=== PATIENT | male | born 1990 | race Caucasian/White ===

== ENCOUNTER 2017-07-13 15:02 | Emergency (ER) | payer OTHER ==
[~2017-07-13] VITALS: Ht 180.3 cm; Wt 93.6 kg
[2017-07-13 15:16] VITALS: TEMP 37.6; Ht 180.3 cm; Wt 93.6 kg
--- NOTE | 2017-07-13 15:47 | DIAGNOSTIC IMAGING REPORT ---
CHEST ONE VIEW PORTABLE CLINICAL HISTORY: Altered mental status. Weakness. COMPARISON STUDY: No previous studies for comparison. FINDINGS: The cardiac and mediastinal contours are normal. There is no evidence of focal pulmonary consolidation. There is no evidence of failure. No pleural effusions are visualized.[ IMPRESSION: No active disease in the chest. Electronically signed by: Harpal Blanco M.D. 07/13/2017 3:46 PM Dictated Date/Time: 07/13/2017 3:46 PM
[2017-07-13] MEDS ORDERED: ZIPR60CA PO (16:04)
[2017-07-13] MEDS ORDERED: CLON0.1T12 PO (16:04)
[2017-07-13] MEDS ORDERED: ZIPR1CAP4 PO (16:04)
[2017-07-13] MEDS ORDERED: BUPR75TA20 PO (16:04)
[2017-07-13] MEDS ORDERED: CLON0.2T PO (16:04)
[2017-07-13] MEDS ORDERED: DIPH50TA10 PO (16:06)
[2017-07-13 16:14] LABS: PROTHROMBIN TIME (PATIENT) 10.8 SECONDS (9.0-12.0)
--- NOTE | 2017-07-13 16:18 | DIAGNOSTIC IMAGING REPORT ---
CT HEAD WITHOUT CONTRAST (CT) CLINICAL HISTORY: Right-sided weakness, headache, blurred vision. COMPARISON STUDY: No previous studies for comparison. TECHNIQUE: Axial CT of the brain is performed from the vertex to the skull base. IV contrast was not administered for this examination. A dose lowering technique was utilized adhering to the principles of ALARA. CT DOSE: 679.75 mGycm FINDINGS: No intra or extra-axial mass lesions are visualized. There is no CT evidence of acute cortical infarction. There is no evidence of midline shift. There is no acute hemorrhage. No calvarial fractures are visualized. There is no evidence of pathologic ventricular dilatation. There is no evidence of acute sinusitis IMPRESSION: 1. No acute intracranial findings 2. There are no findings to explain the patient's neurological status. If symptoms persist, an MRI the brain should be considered in follow-up Electronically signed by: Harpal Blanco M.D. 07/13/2017 4:16 PM Dictated Date/Time: 07/13/2017 4:15 PM
[2017-07-13 16:25] LABS: ALT/SGPT 24 U/L (12-78); BLOOD UREA NITROGEN 9 mg/dl (7-18); BUN/CREATININE RATIO 9.3 (10-20); CALCIUM 9.3 mg/dl (8.5-10.1); CARBON DIOXIDE 26 mmol/L (21-32); CHLORIDE 108 mmol/L (98-107); GLUCOSE 95 mg/dl (70-99); MAGNESIUM 2.2 mg/dl (1.8-2.4); POTASSIUM 3.9 mmol/L (3.5-5.1); SODIUM 139 mmol/L (136-145)
[2017-07-13 16:26] LABS: BASO % 0.6 %; BASO ABS # 0.05 K/uL (0-0.2); COMPLETE YES; EOS % 2.4 %; HEMATOCRIT 43.2 % (42-52); IG% 0.1 %; LYMPH % 26.1 %; MEAN CELL VOLUME 93.3 fL (80-100); MEAN CORPUSCULAR HEMOGLOBIN 31.7 pg (25-34); NEUT % 61.8 %; PLATELET COUNT 274 K/uL (130-400); RED BLOOD COUNT 4.63 M/uL (4.7-6.1); WHITE BLOOD COUNT 8.04 K/uL (4.8-10.8)
[2017-07-13 16:34] LABS: ALKALINE PHOSPHATASE 51 U/L (45-117); AST/SGOT 16 U/L (15-37); THYROID STIMULATING HORMONE 0.507 uIu/ml (0.300-4.500)
[2017-07-13 18:02] VITALS: BP 108/69; PULSE 65; O2SAT 99
--- NOTE | 2017-07-13 18:33 | EMERGENCY ROOM VISIT NOTE ---
History Report prepared by Dominique: Jesús Grewal Under the Supervision of: Dr. Donaldo Medina D.O. First contact with patient: 15:22 Chief Complaint: WEAKNESS Stated Complaint: R SIDE WEAKNESS, HEADACHE, BLURRED VISION History of Present Illness The patient is a 26 year old male who presents to the Emergency Room with complaints of right sided body numbness for the past week which has worsened over the past two days. The patient states that it is worse in the right arm, leg, and face. He additionally states that he is nauseous, and he has been having difficulty balancing while walking. He states that he has also been having some right sided weakness in both extremities. He states that he has a history of hepatitis B. Source of History: patient Onset: a week ago Position: other (right side) Quality: numbness Timing: worsening Associated Symptoms: + nausea, + weakness Note: Associated symptoms: Difficulty balancing Review of Systems See HPI for pertinent positives & negatives. A total of 10 systems reviewed and were otherwise negative. Past Medical & Surgical Medical Problems: (1) Hepatitis B Social History Smoking Status: Current Every Day Smoker Marital Status: single Housing Status: other (intermediate) Occupation Status: other (prisoner) Current/Historical Medications Scheduled Bupropion (Wellbutrin), 150 MG PO BID Clonidine Hcl (Catapres), 0.1 MG PO QAM Clonidine Hcl (Catapres), 0.2 MG PO HS Diphenhydramine Hcl (Sleep) (Diphenhydramine Hcl), 1 TAB PO HS Ziprasidone Hcl (Geodon), 40 MG PO BID Ziprasidone Hcl (Geodon), 60 MG PO BID Physical Exam Vital Signs Date Time Temp Pulse Resp B/P (MAP) Pulse Ox O2 Delivery O2 Flow Rate FiO2 07/13/17 17:15 71 20 104/65 99 Room Air 07/13/17 15:32 72 07/13/17 15:16 37.6 75 20 120/73 97 Room Air Physical Exam VITAL SIGNS: were reviewed as above. GENERAL:Non-toxic in appearance. SKIN: Warm dry and pink. HEAD: Normocephalic and atraumatic. OROPHARYNX: Is clear and moist NECK: Supple without lymphadenopathy or meningismus. LUNGS: clear. HEART: Regular rate and rhythm. ABDOMEN: Soft and nontender. EXTREMITIES: Warm and well perfused. NEUROLOGICALLY: Cranial nerves appear intact. Normal upper extremity strength. Right leg appears slightly weaker than the left. MUSCULOSKELETAL: Good muscle tone. No evidence of trauma. Medical Decision & Procedures ER Provider Diagnostic Interpretation: Radiology results as stated below per my review and radiologist interpretation: CT HEAD WITHOUT CONTRAST (CT) CLINICAL HISTORY: Right-sided weakness, headache, blurred vision. COMPARISON STUDY: No previous studies for comparison. TECHNIQUE: Axial CT of the brain is performed from the vertex to the skull base. IV contrast was not administered for this examination. A dose lowering technique was utilized adhering to the principles of ALARA. CT DOSE: 679.75 mGycm FINDINGS: No intra or extra-axial mass lesions are visualized. There is no CT evidence of acute cortical infarction. There is no evidence of midline shift. There is no acute hemorrhage. No calvarial fractures are visualized. There is no evidence of pathologic ventricular dilatation. There is no evidence of acute sinusitis IMPRESSION: 1. No acute intracranial findings 2. There are no findings to explain the patient's neurological status. If symptoms persist, an MRI the brain should be considered in follow-up Electronically signed by: Harpal Blanco M.D. 07/13/2017 4:16 PM Dictated Date/Time: 07/13/2017 4:15 PM CHEST ONE VIEW PORTABLE CLINICAL HISTORY: Altered mental status. Weakness. COMPARISON STUDY: No previous studies for comparison. FINDINGS: The cardiac and mediastinal contours are normal. There is no evidence of focal pulmonary consolidation. There is no evidence of failure. No pleural effusions are visualized.[ IMPRESSION: No active disease in the chest. Electronically signed by: Harpal Blanco M.D. 07/13/2017 3:46 PM Dictated Date/Time: 07/13/2017 3:46 PM Laboratory Results 07/13/17 15:55 Red Blood Count 4.63, Mean Corpuscular Volume 93.3, Mean Corpuscular Hemoglobin 31.7, Mean Corpuscular Hemoglobin Concent 34.0, Mean Platelet Volume 10.0, Neutrophils (%) (Auto) 61.8, Lymphocytes (%) (Auto) 26.1, Monocytes (%) (Auto) 9.0, Eosinophils (%) (Auto) 2.4, Basophils (%) (Auto) 0.6, Neutrophils # (Auto) 4.97, Lymphocytes # (Auto) 2.10, Monocytes # (Auto) 0.72, Eosinophils # (Auto) 0.19, Basophils # (Auto) 0.05 07/13/17 15:55 Test 07/13/17 15:55 White Blood Count 8.04 K/uL (4.8-10.8) Red Blood Count 4.63 M/uL (4.7-6.1) Hemoglobin 14.7 g/dL (14.0-18.0) Hematocrit 43.2 % (42-52) Mean Corpuscular Volume 93.3 fL (80-100) Mean Corpuscular Hemoglobin 31.7 pg (25-34) Mean Corpuscular Hemoglobin Concent 34.0 g/dl (32-36) Platelet Count 274 K/uL (130-400) Mean Platelet Volume 10.0 fL (7.4-10.4) Neutrophils (%) (Auto) 61.8 % Lymphocytes (%) (Auto) 26.1 % Monocytes (%) (Auto) 9.0 % Eosinophils (%) (Auto) 2.4 % Basophils (%) (Auto) 0.6 % Neutrophils # (Auto) 4.97 K/uL (1.4-6.5) Lymphocytes # (Auto) 2.10 K/uL (1.2-3.4) Monocytes # (Auto) 0.72 K/uL (0.11-0.59) Eosinophils # (Auto) 0.19 K/uL (0-0.5) Basophils # (Auto) 0.05 K/uL (0-0.2) RDW Standard Deviation 43.2 fL (36.4-46.3) RDW Coefficient of Variation 12.6 % (11.5-14.5) Immature Granulocyte % (Auto) 0.1 % Immature Granulocyte # (Auto) 0.01 K/uL (0.00-0.02) Prothrombin Time 10.8 SECONDS (9.0-12.0) Prothromb Time International Ratio 1.0 (0.9-1.1) Activated Partial Thromboplast Time 26.1 SECONDS (21.0-31.0) Partial Thromboplastin Ratio 1.0 Anion Gap 5.0 mmol/L (3-11) Est Creatinine Clear Calc Drug Dose 128.5 ml/min Estimated GFR () 118.2 Estimated GFR (Non- 102.0 BUN/Creatinine Ratio 9.3 (10-20) Calcium Level 9.3 mg/dl (8.5-10.1) Magnesium Level 2.2 mg/dl (1.8-2.4) Total Bilirubin 0.4 mg/dl (0.2-1) Direct Bilirubin 0.2 mg/dl (0-0.2) Aspartate Amino Transf (AST/SGOT) 16 U/L (15-37) Alanine Aminotransferase (ALT/SGPT) 24 U/L (12-78) Alkaline Phosphatase 51 U/L (45-117) Total Creatine Kinase 82 U/L (39-308) Creatine Kinase MB < 0.5 ng/ml (0.5-3.6) Creatine Kinase MB Ratio (0-3.0) Troponin I < 0.015 ng/ml (0-0.045) Total Protein 7.5 gm/dl (6.4-8.2) Albumin 4.0 gm/dl (3.4-5.0) Lipase 76 U/L (73-393) Thyroid Stimulating Hormone (TSH) 0.507 uIu/ml (0.300-4.500) Laboratory results as stated above per my review. ECG Indication: other (right sided numbness) Rate (beats per minute): 59 Rhythm: normal sinus Findings: no ectopy, other (No injury) ED Course 1537: Previous medical records were reviewed. The patient was evaluated in room A11. A complete history and physical examination was performed. 1751: On reevaluation, the patient is feeling well. I discussed the results and findings with the patient. He verbalized agreement of the treatment plan. He was discharged home. Medical Decision Differential includes acute coronary syndrome, myocardial infarction, CVA, TIA, anemia, infection, pneumonia, UTI, pyelonephritis, poor nutrition, dehydration, electrolyte disturbance,hypoglycemia. This is a 26-year-old male who presents to the ED with a chief complaint of right-sided weakness. The patient reports that the right side of his body is numb and feels as though to sleep. He also reports some weakness in his right leg and right arm. He states that he has had the symptoms for over a week. He reports a little nausea and states that his symptoms seemed to worsen over the last couple of days. His vital signs are normal. He is afebrile. He does not appear to be in any distress. His physical exam was unremarkable. Neurologically, the patient has no facial droop. He has no weakness of his right upper extremity. He does have some weakness in the right leg compared to the left on clinical exam. The patient's laboratory studies revealed normal blood work including a CBC, complete metabolic panel, troponin and TSH. Chest x -ray did not show acute disease. A CT scan of the brain was negative for acute disease. EKG shows a sinus rhythm at a rate of 59. No acute injury or ectopy. The patient was told the results of the test. At this point, there is no clear explanation for the patient's symptoms but emergent pathology has been ruled out. I feel the patient is stable for discharge back to the care home. Medication Reconcilliation Current Medication List: was personally reviewed by me Blood Pressure Screening Patient's blood pressure: Normal blood pressure Impression Primary Impression: Weakness of right side of body Scribe Attestation The scribe's documentation has been prepared under my direction and personally reviewed by me in its entirety. I confirm that the note above accurately reflects all work, treatment, procedures, and medical decision making performed by me. Departure Information Dispostion Home / Self-Care Referrals Lilia GOLDBERG (PCP) Forms HOME CARE DOCUMENTATION FORM, IMPORTANT VISIT INFORMATION Patient Instructions My [facility] Additional Instructions Follow-up with your doctor for further care and evaluation in 1-2 days. Return to the emergency department for worsening or new symptoms or any concerns. You have been examined and treated today on an emergency basis only. This is not a substitute for, or an effort to provide, complete comprehensive medical care. It is impossible to recognize and treat all injuries or illnesses in a single emergency department visit. It is therefore important that you follow up closely with your doctor. Call as soon as possible for an appointment.
[2017-07-20] MEDS ORDERED: METH4PAK PO (15:42)
[2017-07-20] MEDS ORDERED: METH1INJ13 IV (15:42)
== END 2017-07-13 18:03 | disposition home or self-care (01) ==
LOC: C.EDA 15:05
DX: R53.1 Weakness (principal); R20.0 Anesthesia of skin; R11.0 Nausea; Z79.899 Other long term (current) drug therapy; F17.200 Nicotine dependence, unspecified, uncomplicated

== ENCOUNTER 2017-07-19 12:30 | Inpatient (IN) | payer OTHER ==
[~2017-07-19] VITALS: Ht 180.3 cm; Wt 91.5 kg
[~2017-07-19 12:30] MED LIST: BUPR75TA20 PO; CLON0.1T12 PO; CLON0.2T PO; DIPH50TA10 PO; ZIPR1CAP4 PO; ZIPR60CA PO
--- NOTE | 2017-07-19 14:17 | EMERGENCY ROOM VISIT NOTE ---
History Report prepared by Dominique: Rafael Weinstein Under the Supervision of: Dr. Jerald Flanagan D.O. First contact with patient: 14:00 Chief Complaint: NEURO SYMPTOMS Stated Complaint: BLANACE OFF, EYES GOING CROSS Nursing Triage Summary: triage note; pt from [facility]. pt reports he was seen in ed for the same symptoms last week. pt reports "my right side is numb, i keep falling to the right and i am stumbling and i am seeing double, my blanace is off." pt reports "it is getting worse since i was here last week." History of Present Illness The patient is a 26 year old male who presents to the Emergency Room from [facility] with complaints of worsening episodes of neuro symptoms that started 2 weeks ago. He says that he has been having these episodes where his eyes get cross-eyed, and he feels off-balance and veering to the right. The patient states that he has also had nausea and vomiting with these episodes, and the right side of his body feels asleep. He denies any left-sided symptoms. The patient states that he was seen here a week ago for his symptoms, and had a brain CT, chest x-ray, and EKG done, which revealed nothing abnormal. The patient says that he has not been on any new medications. The patent states that his episode earlier today was "horrible". He denies any pain, fevers, or headache. Source of History: patient Onset: 2 weeks ago Position: other (global - neuro symptoms) Timing: worsening, other (episodes) Associated Symptoms: + nausea, + vomiting, + numbness (right side of body), No fevers, No headache Note: Associated symptoms: Eyes cross-eyed, feels off-balance. Denies left sided symptoms, or any pain. Review of Systems See HPI for pertinent positives & negatives. A total of 10 systems reviewed and were otherwise negative. Past Medical & Surgical Medical Problems: (1) Hepatitis B Family History Unobtainable Social History Smoking Status: Current Every Day Smoker Marital Status: single Housing Status: other Occupation Status: other Current/Historical Medications Scheduled Bupropion (Wellbutrin), 150 MG PO BID Clonidine Hcl (Catapres), 0.1 MG PO QAM Clonidine Hcl (Catapres), 0.2 MG PO HS Diphenhydramine Hcl (Sleep) (Diphenhydramine Hcl), 1 TAB PO HS Ziprasidone Hcl (Geodon), 40 MG PO BID Ziprasidone Hcl (Geodon), 60 MG PO BID Allergies Coded Allergies: No Known Allergies (Unverified , 07/19/17) Physical Exam Vital Signs Date Time Temp Pulse Resp B/P (MAP) Pulse Ox O2 Delivery O2 Flow Rate FiO2 07/19/17 15:30 86 22 98 07/19/17 15:00 85 22 98 07/19/17 14:35 88 20 118/74 100 Room Air 07/19/17 14:34 88 118/74 90 108/68 92 102/71 07/19/17 14:32 102/71 07/19/17 14:31 108/68 07/19/17 14:16 Room Air 07/19/17 14:00 84 23 97 07/19/17 13:30 87 21 97 07/19/17 13:29 96 Room Air 07/19/17 13:16 93 07/19/17 12:48 36.9 102 18 108/76 96 Room Air Physical Exam GENERAL: Patient is awake, alert, and in no acute distress. Patient is resting comfortably and showing no signs of anxiety EYES: Pupils are equal, round and reactive to light. Patient had difficulty looking laterally with the right eye and appears to have nystagmus when looking to the right, patient has disconjugate gaze and when looking to right, patient suffers diplopia. Left eye exam appeared normal with extraocular movement testing. EARS, NOSE, MOUTH AND THROAT: The nose is without any evidence of any deformity. Mucous membranes are moist tongue is midline NECK: The neck is nontender and supple. RESPIRATORY: Normal respiratory effort is noted there is no evidence of wheezing rhonchi or rales CARDIOVASCULAR: Regular rate and rhythm noted there no murmurs rubs or gallops normal S1 normal S2 GASTROINTESTINAL: The abdomen is soft. Bowel sounds are present in all quadrants. Abdomen is nontender MUSCULOSKELETAL/EXTREMITIES: There is no evidence of gross deformity full range of motion is noted in the hips and shoulders SKIN: There is no obvious evidence of any rash. There are no petechiae, pallor or cyanosis noted. NEUROLOGIC: Patient is awake alert and oriented x3 strength is symmetric patellar reflexes are 2+ bilaterally Medical Decision & Procedures ER Provider Diagnostic Interpretation: MRI results as stated below per my review and radiologist interpretation. MRI OF THE BRAIN COMBO CLINICAL HISTORY: Right-sided weakness. Diplopia. COMPARISON STUDY: CT of the brain dated 07/13/2017. TECHNIQUE: MRI of the brain was performed utilizing various T1 and T2-weighted sequences in the axial, sagittal, and coronal planes. Contrast-enhanced sequences were acquired following the administration of 9 cc of Gadavist. FINDINGS: Brain parenchyma: There are numerous T2 hyperintense lesions identified throughout the subcortical and periventricular white matter, as well as in the thalamus, nathan, and cerebellar peduncles. Several of these demonstrate postcontrast enhancement, and the largest is in the right frontal periventricular white matter and measures up to 1.5 cm. There is no significant associated mass effect. No hemorrhage is seen. There is no restricted diffusion typical for acute ischemia. Foci of T2 shine through are seen within several days lesions No enhancing mass lesion is identified on the postcontrast images. No extra-axial fluid collection is seen. The cerebellar tonsils are normal in configuration. Ventricles, sulci, and cisterns: Normal in configuration. Pituitary and sella: Unremarkable. Intracranial vasculature: Normal flow voids are maintained at the skull base. Orbits: The bony orbits are grossly intact. Orbital contents are normal in appearance. Sinuses and mastoids: Clear. Calvarium: Unremarkable. Cervical cord: Partially visualized cervical spinal cord is normal in morphology and signal intensity. IMPRESSION: 1. There are numerous T2 hyperintense lesion scattered throughout the brain as above. Several of these lesions demonstrate postcontrast enhancement an the appearance is highly concerning for a demyelinating process such as multiple sclerosis. The top differential consideration is PIT SHOVELER infection, with neoplasm considered much less likely. Clinical correlation will be essential. 2. There is no hemorrhage or evidence of acute ischemia. No significant mass effect is seen. Electronically signed by: Jonnathan Damian M.D. 07/19/2017 4:31 PM Dictated Date/Time: 07/19/2017 4:22 PM Laboratory Results 07/19/17 15:05 Red Blood Count 4.74, Mean Corpuscular Volume 91.4, Mean Corpuscular Hemoglobin 32.5, Mean Corpuscular Hemoglobin Concent 35.6, Mean Platelet Volume 9.5, Neutrophils (%) (Auto) 64.0, Lymphocytes (%) (Auto) 26.9, Monocytes (%) (Auto) 6.7, Eosinophils (%) (Auto) 1.7, Basophils (%) (Auto) 0.5, Neutrophils # (Auto) 5.57, Lymphocytes # (Auto) 2.34, Monocytes # (Auto) 0.58, Eosinophils # (Auto) 0.15, Basophils # (Auto) 0.04 07/19/17 14:20 Test 07/19/17 14:18 07/19/17 14:20 07/19/17 14:31 07/19/17 15:05 Urine Color YELLOW Urine Appearance CLEAR (CLEAR) Urine pH 8.0 (4.5-7.5) Urine Specific [place] 1.011 (1.000-1.030) Urine Protein NEG (NEG) Urine Glucose (UA) NEG (NEG) Urine Ketones NEG (NEG) Urine Occult Blood NEG (NEG) Urine Nitrite NEG (NEG) Urine Bilirubin NEG (NEG) Urine Urobilinogen NEG (NEG) Urine Leukocyte Esterase NEG (NEG) Urine Opiates Screen NEG (NEG) Urine Methadone, Qualitative NEG (NEG) Urine Barbiturates NEG (NEG) Urine Phencyclidine (PCP) Level NEG (NEG) Ur Amphetamine/Methamphetamine NEG (NEG) MDMA (Ecstasy) Screen POS (NEG) Urine Benzodiazepines Screen NEG (NEG) Urine Cocaine Metabolite NEG (NEG) Urine Marijuana (THC) NEG (NEG) Prothrombin Time 11.0 SECONDS (9.0-12.0) Prothromb Time International Ratio 1.0 (0.9-1.1) Activated Partial Thromboplast Time 26.8 SECONDS (21.0-31.0) Partial Thromboplastin Ratio 1.0 Anion Gap 6.0 mmol/L (3-11) Est Creatinine Clear Calc Drug Dose 115.6 ml/min Estimated GFR () 105.3 Estimated GFR (Non- 90.9 BUN/Creatinine Ratio 9.5 (10-20) Calcium Level 8.8 mg/dl (8.5-10.1) Magnesium Level 2.3 mg/dl (1.8-2.4) Total Bilirubin 0.4 mg/dl (0.2-1) Direct Bilirubin 0.1 mg/dl (0-0.2) Aspartate Amino Transf (AST/SGOT) 16 U/L (15-37) Alanine Aminotransferase (ALT/SGPT) 24 U/L (12-78) Alkaline Phosphatase 55 U/L (45-117) Troponin I < 0.015 ng/ml (0-0.045) Total Protein 7.5 gm/dl (6.4-8.2) Albumin 4.1 gm/dl (3.4-5.0) Thyroid Stimulating Hormone (TSH) 0.852 uIu/ml (0.300-4.500) Bedside Glucose 107 mg/dl (70-99) White Blood Count 8.70 K/uL (4.8-10.8) Red Blood Count 4.74 M/uL (4.7-6.1) Hemoglobin 15.4 g/dL (14.0-18.0) Hematocrit 43.3 % (42-52) Mean Corpuscular Volume 91.4 fL (80-100) Mean Corpuscular Hemoglobin 32.5 pg (25-34) Mean Corpuscular Hemoglobin Concent 35.6 g/dl (32-36) Platelet Count 252 K/uL (130-400) Mean Platelet Volume 9.5 fL (7.4-10.4) Neutrophils (%) (Auto) 64.0 % Lymphocytes (%) (Auto) 26.9 % Monocytes (%) (Auto) 6.7 % Eosinophils (%) (Auto) 1.7 % Basophils (%) (Auto) 0.5 % Neutrophils # (Auto) 5.57 K/uL (1.4-6.5) Lymphocytes # (Auto) 2.34 K/uL (1.2-3.4) Monocytes # (Auto) 0.58 K/uL (0.11-0.59) Eosinophils # (Auto) 0.15 K/uL (0-0.5) Basophils # (Auto) 0.04 K/uL (0-0.2) RDW Standard Deviation 42.8 fL (36.4-46.3) RDW Coefficient of Variation 12.7 % (11.5-14.5) Immature Granulocyte % (Auto) 0.2 % Immature Granulocyte # (Auto) 0.02 K/uL (0.00-0.02) Laboratory results per my review. ECG Indication: nausea Rate (beats per minute): 85 Rhythm: normal sinus Findings: no ectopy, other (no acute ST segment abnormalities) Change: no significant change (from July 13 of this year) ED Course 1409: The patient was evaluated in room A2. A complete history and physical examination were performed. 1645: I reevaluated and updated the patient. 1706: I discussed the patient with Dr. Ghanshyam LEONARDO neurology. 1713: I discussed the patient with Dr. Keeley kelly doctor at the [facility]. 1714: I discussed the patient with Dr. Moni LEONARDO contracting specialist. He will evaluate the patient for further treatment. 1718. I reevaluated the patient and he is resting. The patient verbally expressed understanding and agreement with the treatment plan. The patient will be evaluated for further treatment. Medical Decision Differential diagnosis: Etiologies such as metabolic, infection, hypo/hyperglycemia, electrolyte abnormalities, cardiac sources, intracerebral event, toxicologic, neurologic, as well as others were entertained. Nursing notes reviewed. The patient's previous electronic medical records reviewed. The patient is a 26-year-old male who presented to the emergency department for ongoing neurologic problems. The patient was seen in our facility recently for similar complaints. His neuro workup at that time did not reveal definite cause for his symptoms. The patient appeared to have diplopia as well as a disconjugate type gaze. The patient was found to have signs of demyelinating disease on MRI the brain. This would explain the patient's symptoms because I feel his neuro symptoms are not necessarily compatible with a stroke syndrome but would be more befitting of the diagnosis of MS. I discussed the patient's laboratory radiographic studies with him. I discussed his case with the on-call neurologist as well as the on-call [facility] hospitalist group. They've agreed to evaluate the patient in the emergency department for further management and disposition. Medication Reconcilliation Current Medication List: was personally reviewed by me Blood Pressure Screening Patient's blood pressure: Normal blood pressure Consults Time Called: 1700 Consulting Physician: Dr. Ghanshyam LEONARDO neurology Returned Call: 1706 I discussed the patient with Dr. Ghanshyam LEONARDO neurology. Additional Consults: Time Called: 1710 Consulted Physician: Dr. Mina - physician practice consultant doctor at the [facility] Returned Call: [phone] Additional Comments: I discussed the patient with Dr. Keeley kelly doctor at the [facility]. Time Called: 1710 Consulted Physician: Dr. Moni LEONARDO contracting specialist Returned Call: [phone] Additional Comments: I discussed the patient with Dr. Moni Vieira [facility] contracting specialist. He will evaluate the patient for further treatment. Impression Primary Impression: Diplopia Additional Impressions: Sixth cranial nerve palsy Abnormal MRI Scribe Attestation The scribe's documentation has been prepared under my direction and personally reviewed by me in its entirety. I confirm that the note above accurately reflects all work, treatment, procedures, and medical decision making performed by me. Departure Information Dispostion Being Evaluated By Hospitalist Referrals iLlia GOLDBERG (PCP) Patient Instructions My [facility] Problem Qualifiers
[2017-07-19 14:44] LABS: URINE APPEARANCE CLEAR (CLEAR); URINE BILIRUBIN NEG (NEG); URINE COLOR YELLOW; URINE NITRITE NEG (NEG); URINE SPECIFIC GRAVITY 1.011 (1.000-1.030); UROBILINOGEN NEG (NEG)
[2017-07-19 14:55] LABS: MANUAL MICROSCOPIC REQUIRED? NO; REVIEW REQ? NO
[2017-07-19 15:10] LABS: BENZODIAZEPINE, URINE NEG (NEG); COCAINE,URINE NEG (NEG); PHENCYCLIDINE, URINE NEG (NEG)
[2017-07-19 15:16] LABS: BASO % 0.5 %; BASO ABS # 0.04 K/uL (0-0.2); COMPLETE YES; EOS % 1.7 %; HEMATOCRIT 43.3 % (42-52); IG% 0.2 %; LYMPH % 26.9 %; LYMPH ABS # 2.34 K/uL (1.2-3.4); MEAN CELL VOLUME 91.4 fL (80-100); MEAN CORPUSCULAR HEMOGLOBIN 32.5 pg (25-34); MEAN CORPUSCULAR HGB CONC 35.6 g/dl (32-36); MEAN PLATELET VOLUME 9.5 fL (7.4-10.4); MONO % 6.7 %; PLATELET COUNT 252 K/uL (130-400); RED BLOOD COUNT 4.74 M/uL (4.7-6.1)
[2017-07-19 15:32] LABS: ALT/SGPT 24 U/L (12-78); BLOOD UREA NITROGEN 10 mg/dl (7-18); BUN/CREATININE RATIO 9.5 (10-20); CALCIUM 8.8 mg/dl (8.5-10.1); CARBON DIOXIDE 26 mmol/L (21-32); CHLORIDE 110 mmol/L (98-107); GLUCOSE 103 mg/dl (70-99); MAGNESIUM 2.3 mg/dl (1.8-2.4); POTASSIUM 3.9 mmol/L (3.5-5.1); SODIUM 142 mmol/L (136-145)
[2017-07-19 15:43] LABS: ALKALINE PHOSPHATASE 55 U/L (45-117); AST/SGOT 16 U/L (15-37); THYROID STIMULATING HORMONE 0.852 uIu/ml (0.300-4.500)
--- NOTE | 2017-07-19 16:33 | DIAGNOSTIC IMAGING REPORT ---
MRI OF THE BRAIN COMBO CLINICAL HISTORY: Right-sided weakness. Diplopia. COMPARISON STUDY: CT of the brain dated 07/13/2017. TECHNIQUE: MRI of the brain was performed utilizing various T1 and T2-weighted sequences in the axial, sagittal, and coronal planes. Contrast-enhanced sequences were acquired following the administration of 9 cc of Gadavist. FINDINGS: Brain parenchyma: There are numerous T2 hyperintense lesions identified throughout the subcortical and periventricular white matter, as well as in the thalamus, nathan, and cerebellar peduncles. Several of these demonstrate postcontrast enhancement, and the largest is in the right frontal periventricular white matter and measures up to 1.5 cm. There is no significant associated mass effect. No hemorrhage is seen. There is no restricted diffusion typical for acute ischemia. Foci of T2 shine through are seen within several days lesions No enhancing mass lesion is identified on the postcontrast images. No extra-axial fluid collection is seen. The cerebellar tonsils are normal in configuration. Ventricles, sulci, and cisterns: Normal in configuration. Pituitary and sella: Unremarkable. Intracranial vasculature: Normal flow voids are maintained at the skull base. Orbits: The bony orbits are grossly intact. Orbital contents are normal in appearance. Sinuses and mastoids: Clear. Calvarium: Unremarkable. Cervical cord: Partially visualized cervical spinal cord is normal in morphology and signal intensity. IMPRESSION: 1. There are numerous T2 hyperintense lesion scattered throughout the brain as above. Several of these lesions demonstrate postcontrast enhancement an the appearance is highly concerning for a demyelinating process such as multiple sclerosis. The top differential consideration is LITIGATION MANAGER infection, with neoplasm considered much less likely. Clinical correlation will be essential. 2. There is no hemorrhage or evidence of acute ischemia. No significant mass effect is seen. Electronically signed by: Jonnathan Damian M.D. 07/19/2017 4:31 PM Dictated Date/Time: 07/19/2017 4:22 PM
[2017-07-19] MEDS ORDERED: MAGNESIUM HYDROXIDE SUSP 30 ML UDC PO PRN (17:45)
[2017-07-19] MEDS ORDERED: ACETAMINOPHEN 325 MG TAB PO PRN (17:45)
[2017-07-19] MEDS ORDERED: ALUMINUM/MAGNESIUM/SIMETH (MAALOX MAX) 30 ML UDC PO PRN (17:45)
[2017-07-19] MEDS ORDERED: ONDANSETRON INJ 2 MG/ML 2 ML VIAL IV PRN (17:45)
[2017-07-19] MEDS ORDERED: POLYETHYLENE (MIRALAX) 17 GM PACK PO PRN (17:45)
--- NOTE | 2017-07-19 17:52 | History and Physical ---
History & Physical Date & Time of Service: Jul 19, 2017 at 17:36 Chief Complaint: Blanace Off, Eyes Going Cross Primary Care Physician: Lilia GOLDBERG History of Present Illness Source: patient, clinic records, hospital records Patient is a pleasant 26 y/o male, with PMHx of psychiatric issues, who presented to the ED because of persistent right-sided numbness/tingling. Patient is from [facility]. Patient was seen in the ED on 07/13 because of the same symptoms. At that time, workup, which included CBC, CMP, TSH, CXR, CT of head, and EKG, was unremarkable. Patient presented back to the ED today because symptoms persisted and worsened. Right-sided numbness/tingling is located to entire right side (face, arm, leg). Patient denies any weakness. He admits to difficulty with walking due to right leg numbness causing him to feel off-balance. He admits to associated nausea and decreased appetite. He also states he feels as though his eyes goes cross-eyed. He denies symptoms like this in the past. Other than his psychiatric issues, he denies any medical problems. He denies any family history of neurologic problems. Patient denies any fever, chills, sweats, lightheadedness, dizziness, CP, palpitations, edema, SOB, wheezing, cough, abdominal pain, vomiting, diarrhea, urinary symptoms, melena, weakness, muscle/joint pain, anxiety/depression, active bleeding, or new skin discoloration/changes. Per ED doctor, he spoke with neurology about MRI suggesting MS- recommended continuing outpatient workup. Case was discussed w/ custodial doctor- did not think they could arrange outpatient neurology f/u and recommended patient be admitted for neurology consultation. Past Medical/Surgical History Past Medical History Hepatitis B Psychiatric issues Family History Unobtainable Social History Smoking Status: Current Every Day Smoker Marital Status: single Occupational Status: other ([facility] ) Allergies Coded Allergies: No Known Allergies (Unverified , 07/19/17) Home Medications Scheduled Bupropion (Wellbutrin), 150 MG PO BID Clonidine Hcl (Catapres), 0.1 MG PO QAM Clonidine Hcl (Catapres), 0.2 MG PO HS Diphenhydramine Hcl (Sleep) (Diphenhydramine Hcl), 1 TAB PO HS Ziprasidone Hcl (Geodon), 40 MG PO BID Ziprasidone Hcl (Geodon), 60 MG PO BID Physical Exam Vital Signs Date Time Temp Pulse Resp B/P (MAP) Pulse Ox O2 Delivery O2 Flow Rate FiO2 07/19/17 15:30 86 22 98 07/19/17 15:00 85 22 98 07/19/17 14:35 88 20 118/74 100 Room Air 07/19/17 14:34 88 118/74 90 108/68 92 102/71 07/19/17 14:32 102/71 07/19/17 14:31 108/68 07/19/17 14:16 Room Air 07/19/17 14:00 84 23 97 07/19/17 13:30 87 21 97 07/19/17 13:29 96 Room Air 07/19/17 13:16 93 07/19/17 12:48 36.9 102 18 108/76 96 Room Air General Appearance: no apparent distress Head: normocephalic, atraumatic Eyes: normal inspection, PERRL ENT: hearing grossly normal Neck: supple Respiratory/Chest: lungs clear, no respiratory distress, no accessory muscle use Cardiovascular: regular rate, rhythm Abdomen/GI: normal bowel sounds, non tender, soft Back: normal inspection Extremities/Musculoskelatal: no calf tenderness, no pedal edema Neurologic/Psych: no motor/sensory deficits, alert, normal mood/affect, oriented x 3 Skin: normal color, warm/dry, no rash Diagnostics Laboratory Results Results Past 24 Hours Test 07/19/17 14:18 07/19/17 14:20 07/19/17 14:31 07/19/17 15:05 Range/Units Urine Color YELLOW Urine Appearance CLEAR CLEAR Urine pH 8.0 4.5-7.5 Urine Specific [place] 1.011 1.000-1.030 Urine Protein NEG NEG Urine Glucose (UA) NEG NEG Urine Ketones NEG NEG Urine Occult Blood NEG NEG Urine Nitrite NEG NEG Urine Bilirubin NEG NEG Urine Urobilinogen NEG NEG Urine Leukocyte Esterase NEG NEG Urine Opiates Screen NEG NEG Urine Methadone, Qualitative NEG NEG Urine Barbiturates NEG NEG Urine Phencyclidine (PCP) Level NEG NEG Ur Amphetamine/Methamphetamine NEG NEG MDMA (Ecstasy) Screen POS NEG Urine Benzodiazepines Screen NEG NEG Urine Cocaine Metabolite NEG NEG Urine Marijuana (THC) NEG NEG Prothrombin Time 11.0 9.0-12.0 SECONDS Prothromb Time International Ratio 1.0 0.9-1.1 Activated Partial Thromboplast Time 26.8 21.0-31.0 SECONDS Partial Thromboplastin Ratio 1.0 Sodium Level 142 136-145 mmol/L Potassium Level 3.9 3.5-5.1 mmol/L Chloride Level 110 98-107 mmol/L Carbon Dioxide Level 26 21-32 mmol/L Anion Gap 6.0 3-11 mmol/L Blood Urea Nitrogen 10 7-18 mg/dl Creatinine 1.10 0.60-1.40 mg/dl Est Creatinine Clear Calc Drug Dose 115.6 ml/min Estimated GFR () 105.3 Estimated GFR (Non- 90.9 BUN/Creatinine Ratio 9.5 10-20 Random Glucose 103 70-99 mg/dl Calcium Level 8.8 8.5-10.1 mg/dl Magnesium Level 2.3 1.8-2.4 mg/dl Total Bilirubin 0.4 0.2-1 mg/dl Direct Bilirubin 0.1 0-0.2 mg/dl Aspartate Amino Transf (AST/SGOT) 16 15-37 U/L Alanine Aminotransferase (ALT/SGPT) 24 12-78 U/L Alkaline Phosphatase 55 45-117 U/L Troponin I < 0.015 0-0.045 ng/ml Total Protein 7.5 6.4-8.2 gm/dl Albumin 4.1 3.4-5.0 gm/dl Thyroid Stimulating Hormone (TSH) 0.852 0.300-4.500 uIu/ml Bedside Glucose 107 70-99 mg/dl White Blood Count 8.70 4.8-10.8 K/uL Red Blood Count 4.74 4.7-6.1 M/uL Hemoglobin 15.4 14.0-18.0 g/dL Hematocrit 43.3 42-52 % Mean Corpuscular Volume 91.4 80-100 fL Mean Corpuscular Hemoglobin 32.5 25-34 pg Mean Corpuscular Hemoglobin Concent 35.6 32-36 g/dl Platelet Count 252 130-400 K/uL Mean Platelet Volume 9.5 7.4-10.4 fL Neutrophils (%) (Auto) 64.0 % Lymphocytes (%) (Auto) 26.9 % Monocytes (%) (Auto) 6.7 % Eosinophils (%) (Auto) 1.7 % Basophils (%) (Auto) 0.5 % Neutrophils # (Auto) 5.57 1.4-6.5 K/uL Lymphocytes # (Auto) 2.34 1.2-3.4 K/uL Monocytes # (Auto) 0.58 0.11-0.59 K/uL Eosinophils # (Auto) 0.15 0-0.5 K/uL Basophils # (Auto) 0.04 0-0.2 K/uL RDW Standard Deviation 42.8 36.4-46.3 fL RDW Coefficient of Variation 12.7 11.5-14.5 % Immature Granulocyte % (Auto) 0.2 % Immature Granulocyte # (Auto) 0.02 0.00-0.02 K/uL Diagnostic Radiology MRI OF THE BRAIN COMBO CLINICAL HISTORY: Right-sided weakness. Diplopia. COMPARISON STUDY: CT of the brain dated 07/13/2017. TECHNIQUE: MRI of the brain was performed utilizing various T1 and T2-weighted sequences in the axial, sagittal, and coronal planes. Contrast-enhanced sequences were acquired following the administration of 9 cc of Gadavist. FINDINGS: Brain parenchyma: There are numerous T2 hyperintense lesions identified throughout the subcortical and periventricular white matter, as well as in the thalamus, nathan, and cerebellar peduncles. Several of these demonstrate postcontrast enhancement, and the largest is in the right frontal periventricular white matter and measures up to 1.5 cm. There is no significant associated mass effect. No hemorrhage is seen. There is no restricted diffusion typical for acute ischemia. Foci of T2 shine through are seen within several days lesions No enhancing mass lesion is identified on the postcontrast images. No extra-axial fluid collection is seen. The cerebellar tonsils are normal in configuration. Ventricles, sulci, and cisterns: Normal in configuration. Pituitary and sella: Unremarkable. Intracranial vasculature: Normal flow voids are maintained at the skull base. Orbits: The bony orbits are grossly intact. Orbital contents are normal in appearance. Sinuses and mastoids: Clear. Calvarium: Unremarkable. Cervical cord: Partially visualized cervical spinal cord is normal in morphology and signal intensity. IMPRESSION: 1. There are numerous T2 hyperintense lesion scattered throughout the brain as above. Several of these lesions demonstrate postcontrast enhancement an the appearance is highly concerning for a demyelinating process such as multiple sclerosis. The top differential consideration is EXPENSE ANALYST infection, with neoplasm considered much less likely. Clinical correlation will be essential. 2. There is no hemorrhage or evidence of acute ischemia. No significant mass effect is seen. Electronically signed by: Jonnathan Damian M.D. 07/19/2017 4:31 PM Dictated Date/Time: 07/19/2017 4:22 PM The status of this report is Signed. Draft = Not yet reviewed or approved by Radiologist. Signed = Reviewed and approved by Radiologist. EKG JUDIE MARIE ID:[id number] 19-JUL-2017 15:14:05 [facility] Normal sinus rhythm Normal ECG When compared with ECG of 13-JUL-2017 15:46, No significant change was found 25mm/s 10mm/mV 150Hz 8.0 SP2 12SL 241 [place]: 10 Referred by: [employer] Unconfirmed Vent. rate 85 BPM IA interval 162 ms QRS duration 96 ms QT/QTc 386/459 ms P-R-T axes 54 16 57 1990 (26 yr) Male Room:A2 Loc:15 Lunchroom Supervisor:IRMA BALTAZAR Test ind: Impression Assessment and Plan Patient is a pleasant 26 y/o male, with PMHx of psychiatry issues, who presented to the ED because of persistent right-sided numbness/tingling. Right-sided numbness/tingling, ?secondary to MS: - Admit to med/surg - CBC/PRP unremarkable - UA negative - TSH WNL - Check b12/folate - Consult neurology, appreciate recommendation Psychiatry: Continue [id number] mg BID, Catapres 0.1 mg QAM/0.2 mg HS, Wellbutrin 150 mg BID DVT prophylaxis: Lovenox SQ Code Status: LEVEL I, FULL Dispo: From [facility] i personally examined pt and verified all higgins points w T Murarik PAC double vision, numb leg, stumbling. w/u as above. most likely appearing new MS vitals noted nad breathing unlabored, R eye crossing medially. no pallor or icterus. otherwise as above strabismus, paresthesiae, weakness -new MS most likely vs less likely infectious (sx ongoing for weeks without a fulminant course makes infectious less likely - obviously if w/u for MS of little yield and infectious etiology more entertained, would also need HIV testing) -neurology evaluation -otherwise as above Level of Care Med/Surg Resuscitation Status FULL RESUSCITATION VTE Prophylaxis VTE Risk Assessment Done? Y/N: Yes Risk Level: Low Given or contraindicated: Enoxaparin (Lovenox)SQ, T.E.D. Stockings, SCD's
[2017-07-19] MEDS ORDERED: IV FLUIDS COMPLETED PRN (18:45)
[2017-07-19 19:14] VITALS: BP 106/67; PULSE 99; TEMP 36.9; O2SAT 98
[2017-07-19 19:33] VITALS: BP 106/67; PULSE 99; TEMP 36.9; O2SAT 96; Ht 180.3 cm; Wt 91.5 kg
[2017-07-19] MEDS: ZIPRASIDONE 20 MG CAP PO SCH ×2 (20:47→20:48)
[2017-07-19] MEDS ORDERED: ENOXAPARIN 40 MG/0.4 ML SYR SQ SCH (21:00)
[2017-07-19] MEDS ORDERED: CLONIDINE HCL 0.1 MG TAB PO SCH (21:00)
[2017-07-20] VITALS (9 sets, daily range): BP systolic 92–111; BP diastolic 57–78; PULSE 64–93; TEMP 36.6–36.9; O2SAT 95–99
[2017-07-20] MEDS: ZIPRASIDONE 20 MG CAP PO SCH ×2 (07:45)
[2017-07-20] MEDS ORDERED: ZIPRASIDONE 20 MG CAP PO ONE (08:45)
[2017-07-20] MEDS ORDERED: CLONIDINE HCL 0.1 MG TAB PO SCH ×2 (09:00)
--- NOTE | 2017-07-20 13:40 | Progress Note ---
Subjective Date of Service: Jul 20, 2017. Subjective Pt evaluation today including: conversation w/ patient, physical exam, lab review, review of studies, conversation w/ network security consultant, review of inpatient medication list Pain: no pain PO Intake: NPO for LP Voiding: no voiding problems discussed the case with Dr. Morrissey this AM after he reviewed the brain MRI recommended LP with diagnostic work up for MS, Lyme disease patient still with symptoms, now with tingling and numbness in both lower extremities, diplopia with far vision no weakness noted reviewed lab work and MRI brain results Problem List Medical Problems: (1) Abnormal MRI Status: Acute (2) Diplopia Status: Acute (3) Sixth cranial nerve palsy Status: Acute (4) Weakness of right side of body Status: Acute Review of Systems Constitutional: + weakness Eyes: + diplopia Neurologic: + numbness/tingling (lower extremities bilaterally) All Other Systems: Reviewed and Negative Medications Current Inpatient Medications Medications (Trade) Dose Ordered Sig/Katarzyna Route Start Time Stop Time Status Last Admin Dose Admin Enoxaparin Sodium (Lovenox Inj) 40 mg Q24H SQ 07/19/17 21:00 08/18/17 20:59 07/19/17 20:49 40 MG Acetaminophen (Tylenol Tab) 650 mg Q4H PRN PO 07/19/17 17:45 08/18/17 17:44 07/19/17 23:58 650 MG Al Hydrox/Mg Hydrox/Simethicone (Maalox Max Susp) 15 ml Q4H PRN PO 07/19/17 17:45 08/18/17 17:44 Magnesium Hydroxide (Milk Of Magnesia Susp) 30 ml Q6H PRN PO 07/19/17 17:45 08/18/17 17:44 Polyethylene (Miralax Powder Packet) 17 gm DAILY PRN PO 07/19/17 17:45 08/18/17 17:44 Ondansetron HCl (Zofran Inj) 4 mg Q6H PRN IV 07/19/17 17:45 08/18/17 17:44 Bupropion HCl (Wellbutrin Tab) 150 mg BID PO 07/19/17 21:00 08/18/17 20:59 07/20/17 07:45 150 MG Clonidine HCl (Catapres Tab) 0.2 mg HS PO 07/19/17 21:00 08/18/17 20:59 07/19/17 20:46 0.2 MG Miscellaneous (Iv Fluids Completed) 1 ea PRN PRN N/A 07/19/17 18:45 07/19/18 18:44 Clonidine HCl (Catapres Tab) 0.2 mg QAM PO 07/20/17 09:00 08/19/17 08:59 07/20/17 09:41 0.1 MG Ziprasidone (Geodon Cap) 140 mg BID PO 07/20/17 09:00 08/19/17 08:59 UNV Diphenhydramine HCl (Benadryl Cap) 100 mg HS PO 07/20/17 21:00 08/18/17 20:59 Diphenhydramine HCl (Benadryl Cap) 100 mg QAM PO 07/20/17 09:00 08/19/17 08:59 07/20/17 09:41 100 MG Objective Vital Signs Date Time Temp Pulse Resp B/P (MAP) Pulse Ox O2 Delivery O2 Flow Rate FiO2 07/20/17 08:19 103/68 (80) 111/78 (89) 07/20/17 08:00 Room Air 07/20/17 07:00 36.7 68 20 99/62 (74) 99 Room Air 07/20/17 00:00 36.6 68 20 99/64 (76) 96 Room Air 79 96/64 (75) 93 92/60 (71) 07/19/17 23:50 Room Air 07/19/17 19:33 36.9 99 18 106/67 96 Room Air 07/19/17 19:14 36.9 99 18 106/67 (80) 98 Room Air 07/19/17 18:58 36.9 86 18 102/71 98 07/19/17 18:56 86 18 102/71 98 Room Air 07/19/17 15:30 86 22 98 07/19/17 15:00 85 22 98 07/19/17 14:35 88 20 118/74 100 Room Air 07/19/17 14:34 88 118/74 90 108/68 92 102/71 07/19/17 14:32 102/71 07/19/17 14:31 108/68 07/19/17 14:16 Room Air 07/19/17 14:00 84 23 97 Physical Exam General Appearance: WD/WN, no apparent distress Eyes: normal inspection, EOMI, sclerae normal ENT: normal ENT inspection, hearing grossly normal, pharynx normal Neck: supple, no adenopathy, no JVD, trachea midline Respiratory/Chest: chest non-tender, lungs clear, normal breath sounds, no respiratory distress, no accessory muscle use Cardiovascular: regular rate, rhythm, no edema, no gallop, no JVD, no murmur Abdomen: normal bowel sounds, non tender, soft, no organomegaly Extremities: normal range of motion, non-tender, normal inspection, no pedal edema, no calf tenderness, pelvis stable Neurologic/Psychiatric: weight inspector II-XII nml as tested, alert, normal mood/affect, oriented x 3, + sensory deficit (to light touch in distal lower extremities) Laboratory Results Last 24 Hours Test 07/19/17 14:18 07/19/17 14:20 07/19/17 14:31 07/19/17 15:05 Urine Color YELLOW Urine Appearance CLEAR Urine pH 8.0 Urine Specific [place] 1.011 Urine Protein NEG Urine Glucose (UA) NEG Urine Ketones NEG Urine Occult Blood NEG Urine Nitrite NEG Urine Bilirubin NEG Urine Urobilinogen NEG Urine Leukocyte Esterase NEG Urine Opiates Screen NEG Urine Methadone, Qualitative NEG Urine Barbiturates NEG Urine Phencyclidine (PCP) Level NEG Ur Amphetamine/Methamphetamine NEG MDMA (Ecstasy) Screen POS Urine Benzodiazepines Screen NEG Urine Cocaine Metabolite NEG Urine Marijuana (THC) NEG Prothrombin Time 11.0 SECONDS Prothromb Time International Ratio 1.0 Activated Partial Thromboplast Time 26.8 SECONDS Partial Thromboplastin Ratio 1.0 Sodium Level 142 mmol/L Potassium Level 3.9 mmol/L Chloride Level 110 mmol/L Carbon Dioxide Level 26 mmol/L Anion Gap 6.0 mmol/L Blood Urea Nitrogen 10 mg/dl Creatinine 1.10 mg/dl Est Creatinine Clear Calc Drug Dose 115.6 ml/min Estimated GFR () 105.3 Estimated GFR (Non- 90.9 BUN/Creatinine Ratio 9.5 Random Glucose 103 mg/dl Calcium Level 8.8 mg/dl Magnesium Level 2.3 mg/dl Total Bilirubin 0.4 mg/dl Direct Bilirubin 0.1 mg/dl Aspartate Amino Transf (AST/SGOT) 16 U/L Alanine Aminotransferase (ALT/SGPT) 24 U/L Alkaline Phosphatase 55 U/L Troponin I < 0.015 ng/ml Total Protein 7.5 gm/dl Albumin 4.1 gm/dl Thyroid Stimulating Hormone (TSH) 0.852 uIu/ml Bedside Glucose 107 mg/dl White Blood Count 8.70 K/uL Red Blood Count 4.74 M/uL Hemoglobin 15.4 g/dL Hematocrit 43.3 % Mean Corpuscular Volume 91.4 fL Mean Corpuscular Hemoglobin 32.5 pg Mean Corpuscular Hemoglobin Concent 35.6 g/dl Platelet Count 252 K/uL Mean Platelet Volume 9.5 fL Neutrophils (%) (Auto) 64.0 % Lymphocytes (%) (Auto) 26.9 % Monocytes (%) (Auto) 6.7 % Eosinophils (%) (Auto) 1.7 % Basophils (%) (Auto) 0.5 % Neutrophils # (Auto) 5.57 K/uL Lymphocytes # (Auto) 2.34 K/uL Monocytes # (Auto) 0.58 K/uL Eosinophils # (Auto) 0.15 K/uL Basophils # (Auto) 0.04 K/uL RDW Standard Deviation 42.8 fL RDW Coefficient of Variation 12.7 % Immature Granulocyte % (Auto) 0.2 % Immature Granulocyte # (Auto) 0.02 K/uL Test 07/19/17 19:25 07/20/17 09:33 Vitamin B12 Level 521 pg/mL Folate 18.59 ng/mL Assessment and Plan Patient is a pleasant 26 y/o male, with PMHx of psychiatry issues, who presented to the ED because of persistent right-sided numbness/tingling. Lower extremity numbness/tingling with diplopia changes on MRI brain consistent with multiple areas of possible demyelination discussed with Dr. Morrissey, LP ordered with studies for proteins, oligoclonal bands serum RPR, Lyme ordered after LP will give Solu Medrol 1gm IV and await further recommendations from neurology B12 and folate normal change to full admission Psychiatry: Continue [id number] mg BID, Catapres 0.2 mg BID. Wellbutrin 150 mg BID DVT prophylaxis: Lovenox SQ Code Status: LEVEL I, FULL Dispo: From [facility]
--- NOTE | 2017-07-20 14:53 | DIAGNOSTIC IMAGING REPORT ---
FLUOROSCOPICALLY GUIDED LUMBAR PUNCTURE CLINICAL HISTORY: possible multiple sclerosis. Abnormal brain MRI. FLUOROSCOPY TIME: 0.1 minute. A single fluoroscopic spot image of the lumbar spine PROCEDURE: The procedure, risks and benefits were discussed with the patient including the risk of spinal headache, bleeding and infection. The patient agreed to the procedure and informed written consent was obtained. The procedure was performed by Dr. Kessler following a timeout. The left L4-L5 interlaminar space was targeted. Skin overlying the space was prepped and draped in the usual sterile fashion and local anesthesia was achieved with 1% lidocaine. Under intermittent fluoroscopic guidance, a 20-gauge x 3 1/2 in. Sprotte needle was inserted into the thecal sac. A total of 10 cc of clear, colorless cerebral spinal fluid was obtained and spread amongst 4 vials. The patient tolerated the procedure well. There were no immediate complications. The specimens were sent to the laboratory at the request of the referring physician. IMPRESSION: Successful fluoroscopic guided lumbar puncture with removal of 10 cc of clear, colorless cerebral spinal fluid. No immediate complications. Electronically signed by: Arsalan Kessler M.D. 07/20/2017 2:51 PM Dictated Date/Time: 07/20/2017 2:51 PM
[2017-07-20 15:05] LABS: CSF TOTAL PROTEIN 124.6 mg/dl (15.0-45.0)
[2017-07-20] MEDS ORDERED: METH1INJ13 IV (15:42)
[2017-07-20] MEDS ORDERED: METH4PAK PO (15:42)
--- NOTE | 2017-07-20 15:48 | Discharge Instructions ---
Discharge Instructions Date of Service Jul 20, 2017. Admission Reason for Admission: Diplopia, weakness, numbness Discharge Discharge Diagnosis / Problem: Likely flare of multiple sclerosis Discharge Goals Goal(s): Improve function, Improve disease control, Diagnostic testing (follow up on CSF testing) Activity Recommendations Activity Limitations: resume your previous activity Lifting Limitations: none Exercise/Sports Limitations: as tolerated May Resume Sexual Activity: when tolerated Shower/Bathe: no limitations . Instructions / Follow-Up Instructions / Follow-Up Medications: - SOLUMEDROL: 1000mg IV daily x 4 more days - MEDROL: start dose pack the day after Solu Medrol completed In summary, based on physical exam findings of CN palsy, peripheral weakness and numbness, and coupled with the MRI results, Dr. Morrissey feels that you have multiple sclerosis initial treatment is high dose steroids and then a Medro dose pack follow up with Dr. Morrissey in the clinic in 2 weeks for results of CSF testing and definitive treatment plan Dr. Morrissey [phone] Current Hospital Diet Patient's current hospital diet: Regular Diet Discharge Diet Recommended Diet: Regular Diet Pending Studies Studies pending at discharge: yes List of pending studies: CSF studes, Lyme screen, RPR, ESR Medical Emergencies . Who to Call and When: Medical Emergencies: If at any time you feel your situation is an emergency, please call 911 immediately. . Non-Emergent Contact Non-Emergency issues call your: Primary Care Provider Call Non-Emergent contact if: you have any medication questions . . "Provider Documentation" section prepared by Mark Horton. . VTE Core Measure Inpt VTE Proph given/why not?: Enoxaparin (Lovenox)Lisa ANGEL, SCD's [place] Drug Monitoring Program Search Results: no issues identified
--- NOTE | 2017-07-20 15:54 | Neurology Consultation ---
Neurology Consultation Date of Consultation: Jul 20, 2017. Attending Physician: Mark Horton D.O. Primary Care Physician: Lilia GOLDBERG Reason for Consultation: Patient is a 26-year-old, who I was asked to see the request of Dr. Montenegro, for neurologic consultation regarding new onset right-sided weakness numbness, double vision, and abnormal MRI of the brain. History of Present Illness Source: patient, caregiver, hospital records Patient has no history of previous neurologic events including no episodes of weakness or numbness of the limbs no balance problems, and no vision problems. The patient has had issues with anger management and impulse control and has been on Wellbutrin, clonidine, and Geodon which she claims keep him calm. He is currently without [facility] last 8 months and has been in and out of jail for the last 5 years previous to that. The patient really has not been exposed to words or overgrowth of vegetation or he might get bit by a tip. He remembers no rashes and has no joint issues. About 2 weeks ago, he noted the onset of numbness of his right face. After about 2 days. Went to his right arm. 2 days after that included the right leg. He felt weak in general and about 5 or 6 days after the onset of the symptoms he had double vision. When he closes one eye or the other was better. He had no eye pain or loss of vision. His balance is poor and he falls to the right. He has no incontinence of urine or swallowing problems. His left side is fairly asymptomatic although he started he had a little bit of numbness and tingling in his left leg. Patient arrived to emergency room July 19 at 1248 hours with a temperature 36.9, pulse 102, respiratory rate 18, blood pressure 108/76, and O2 saturation 96%. He was noted to have a right sixth nerve palsy in the ER and had a little bit of weakness and numbness on the right side. MRI of the brain showed multiple T2 lesions above and below the tentorium bilaterally which showed some activity on diffusion and multiple enhancing lesions showing different ages being acute and chronic. There were some ring- enhancing lesions also. CBC, TSH, B-12, folate, chem profile, liver profile and tox screen was unremarkable. Urinalysis was unremarkable. Patient underwent lumbar puncture today and results are pending. Currently he has made no improvements since admission but does not have any new problems. Past Medical/Surgical History Medical Problems: (1) Abnormal MRI Status: Acute (2) Diplopia Status: Acute (3) Sixth cranial nerve palsy Status: Acute (4) Weakness of right side of body Status: Acute History of hepatitis B [place] teeth removal and arthroscopic surgery of his left knee, as his only surgery. He has no cardiac issues, glucose problems, or hypertension. He is on multiple psychiatric medications for impulse control and anger management problems. Family History Father, age 58, with diabetes and thyroid disease. Mother, age 46, has carpal tunnel syndrome and pleurisy. Social History Patient smokes about 15 cigarettes a day since his teen years. Patient does occasionally drink alcohol but not since in jail. Patient did use marijuana but no other drugs. Originally is from [place] and did work in [employer] and [employer]. Smoking Status: Current every day smoker Smokeless Tobacco Use: No Alcohol Use: none Drug Use: none Marital Status: single Housing Status: other Occupation Status: other ([employer] ) Allergies Coded Allergies: No Known Allergies (Unverified , 07/19/17) Current Inpatient Medications Current Inpatient Medications Medications (Trade) Dose Ordered Sig/Katarzyna Route Start Time Stop Time Status Last Admin Dose Admin Enoxaparin Sodium (Lovenox Inj) 40 mg Q24H SQ 07/19/17 21:00 08/18/17 20:59 07/19/17 20:49 40 MG Acetaminophen (Tylenol Tab) 650 mg Q4H PRN PO 07/19/17 17:45 08/18/17 17:44 07/19/17 23:58 650 MG Al Hydrox/Mg Hydrox/Simethicone (Maalox Max Susp) 15 ml Q4H PRN PO 07/19/17 17:45 08/18/17 17:44 Magnesium Hydroxide (Milk Of Magnesia Susp) 30 ml Q6H PRN PO 07/19/17 17:45 08/18/17 17:44 Polyethylene (Miralax Powder Packet) 17 gm DAILY PRN PO 07/19/17 17:45 08/18/17 17:44 Ondansetron HCl (Zofran Inj) 4 mg Q6H PRN IV 07/19/17 17:45 08/18/17 17:44 Bupropion HCl (Wellbutrin Tab) 150 mg BID PO 07/19/17 21:00 08/18/17 20:59 07/20/17 07:45 150 MG Clonidine HCl (Catapres Tab) 0.2 mg HS PO 07/19/17 21:00 08/18/17 20:59 07/19/17 20:46 0.2 MG Miscellaneous (Iv Fluids Completed) 1 ea PRN PRN N/A 07/19/17 18:45 07/19/18 18:44 Clonidine HCl (Catapres Tab) 0.2 mg QAM PO 07/20/17 09:00 08/19/17 08:59 07/20/17 09:41 0.1 MG Ziprasidone (Geodon Cap) 80 mg BID PO 07/20/17 21:00 08/19/17 20:59 Diphenhydramine HCl (Benadryl Cap) 100 mg HS PO 07/20/17 21:00 08/18/17 20:59 Diphenhydramine HCl (Benadryl Cap) 100 mg QAM PO 07/20/17 09:00 08/19/17 08:59 07/20/17 09:41 100 MG Methylprednisolone Sodium Succinate 1000 mg/Dextrose 266 ml @ 250 mls/hr TODAY@1600 IV 07/20/17 16:00 07/20/17 17:04 Ziprasidone (Geodon Cap) 60 mg BID PO 07/20/17 21:00 08/19/17 20:59 Review of Systems Constitutional: + weakness, + fatigue, No fever Eyes: + worsening of vision, + diplopia ENT: No hearing loss, No tinnitus, No trouble swallowing Respiratory: No cough, No shortness of breath Cardiovascular: No chest pain, No palpitations Abdomen: No pain, No nausea Musculoskeletal: No joint pain Genitourinary - Male: No dysuria, No urinary incontinence Neurologic: + weakness, + numbness/tingling, + balance problems Psychiatric: + depression symptoms, + anxiety Endocrine: + fatigue Hematologic / Lymphatic: No abnormal bleeding/bruising Integumentary: No rash Allergic / Immunologic: No hives Physical Exam Vital Signs (Past 24 Hrs): Date Time Temp Pulse Resp B/P (MAP) Pulse Ox O2 Delivery O2 Flow Rate FiO2 07/20/17 14:35 36.8 73 20 102/65 (77) 95 Room Air 07/20/17 08:19 103/68 (80) 111/78 (89) 07/20/17 08:00 Room Air 07/20/17 07:00 36.7 68 20 99/62 (74) 99 Room Air 07/20/17 00:00 36.6 68 20 99/64 (76) 96 Room Air 79 96/64 (75) 93 92/60 (71) 07/19/17 23:50 Room Air 07/19/17 19:33 36.9 99 18 106/67 96 Room Air 07/19/17 19:14 36.9 99 18 106/67 (80) 98 Room Air 07/19/17 18:58 36.9 86 18 102/71 98 07/19/17 18:56 86 18 102/71 98 Room Air Patient is left-handed. The patient is awake and alert. Speech is normal without aphasia or dysarthria. Mentation and thought processes are intact with orientation and normal fund of knowledge. Mood and affect are normal and appropriate. Appearance and grooming are normal. The discs are sharp with positive venous pulsations. There are no exudates, hemorrhages, or blood vessel changes seen. Pupils are 4mm bilaterally and reactive to light. Extraocular eye muscles are intact to the left but he has a right sixth nerve palsy with right gaze. Up-and-down gaze seems normal and he has no obvious nystagmus. Visual acuity and visual noguera seem normal grossly to confrontation. There are no deficits to sensation of the face bilaterally. Corneal reflexes are positive bilaterally. Facial strength and symmetry is normal bilaterally. Hearing seems intact grossly to voice and finger rub. Palate moves well without asymmetry. There is normal sternocleidomastoid and trapezius strength bilaterally. Tongue is midline with good strength bilaterally. Neck is with full range of motion without discomfort. There are no cervical bruits. There are no cranial or ocular bruits. Heart is without murmur. Cervical, thoracic, and lumbar spine are nontender to palpation. Gait is is not tested but stance sitting up in bed is normal With outstretched arms there is very mild drift in the right upper extremity. There are no resting, postural, or action tremors. There is no ataxia with [id number] testing. There is decreased facility in the right hand, and normal facility in the left hand. There are no abnormal involuntary movements noted. Motor strength is 5/5 diffusely in the left arm and leg both proximally and distally. Strength is 4/5 diffusely both proximally and distally in the right arm and leg. The limbs have good tone without rigidity or spasticity, and there is no atrophy noted. Muscle bulk is normal, there is no tenderness, no myotonia noted to percussion, and no fasciculations seen. Sensory examination reveals decreased sensation to pin and touch diffusely in the right face arm and leg. The left side is spared. Reflexes are 1/4 in the biceps, triceps, brachioradialis, quadriceps, and Achilles tendons bilaterally. Toes are downgoing with plantar stimulation bilaterally. Peripheral pulses are present and of normal quality distally in all four limbs. There is no peripheral edema noted. Laboratory Results Past 24 Hours: Test 07/19/17 19:25 07/20/17 14:10 07/20/17 14:47 07/20/17 15:04 Vitamin B12 Level 521 pg/mL (211-911) Folate 18.59 ng/mL (>5.38) CSF Chemistry Tube # 1 CSF Glucose 55 mg/dl (40-70) CSF Total Protein 124.6 mg/dl (15.0-45.0) Imaging MRI OF THE BRAIN COMBO CLINICAL HISTORY: Right-sided weakness. Diplopia. COMPARISON STUDY: CT of the brain dated 07/13/2017. TECHNIQUE: MRI of the brain was performed utilizing various T1 and T2-weighted sequences in the axial, sagittal, and coronal planes. Contrast-enhanced sequences were acquired following the administration of 9 cc of Gadavist. FINDINGS: Brain parenchyma: There are numerous T2 hyperintense lesions identified throughout the subcortical and periventricular white matter, as well as in the thalamus, nathan, and cerebellar peduncles. Several of these demonstrate postcontrast enhancement, and the largest is in the right frontal periventricular white matter and measures up to 1.5 cm. There is no significant associated mass effect. No hemorrhage is seen. There is no restricted diffusion typical for acute ischemia. Foci of T2 shine through are seen within several days lesions No enhancing mass lesion is identified on the postcontrast images. No extra-axial fluid collection is seen. The cerebellar tonsils are normal in configuration. Ventricles, sulci, and cisterns: Normal in configuration. Pituitary and sella: Unremarkable. Intracranial vasculature: Normal flow voids are maintained at the skull base. Orbits: The bony orbits are grossly intact. Orbital contents are normal in appearance. Sinuses and mastoids: Clear. Calvarium: Unremarkable. Cervical cord: Partially visualized cervical spinal cord is normal in morphology and signal intensity. IMPRESSION: 1. There are numerous T2 hyperintense lesion scattered throughout the brain as above. Several of these lesions demonstrate postcontrast enhancement an the appearance is highly concerning for a demyelinating process such as multiple sclerosis. The top differential consideration is [employer] infection, with neoplasm considered much less likely. Clinical correlation will be essential. 2. There is no hemorrhage or evidence of acute ischemia. No significant mass effect is seen. Electronically signed by: Jonnathan Damian M.D. 07/19/2017 4:31 PM Dictated Date/Time: 07/19/2017 4:22 PM Impression 1. New onset neurologic symptoms including right-sided weakness and numbness for the last 2 weeks as well as double vision from a right sixth nerve palsy. MRI of the brain is markedly abnormal and shows multiple white matter hyperintensities with multiple enhancing lesions including ring-enhancing lesions, consistent with demyelinating disease. Therefore I think multiple sclerosis is the most likely etiology of his MRI and symptoms. I cannot entirely exclude other etiologies such as other inflammations and infections, such as Lyme disease. Plan 1. Awaiting LP results. 2. In the meantime, 1 g of Solu-Medrol IV daily for 5 days. This should be followed by a one-week tapering Medrol Dosepak course 3. Hold on antibiotics and less Lyme antibodies are positive, depending on LP results. 4. I see no need for additional neurologic testing at this time. 5. Consider disease modifying therapy as an outpatient after Solu-Medrol and final results are back. I spoke with Dr. Horton regarding this case including differential diagnosis and treatment options.
[2017-07-20] MEDS ORDERED: METHYLPREDNISOLONE IV 1,000 MG in DEXTROSE 5% 250ML 250 ML IV SCH (16:00)
[2017-07-20 16:39] LABS: LYME DISEASE AB IGG NEG (NEG); LYME DISEASE AB IGM NEG (NEG)
[2017-07-20] MEDS ORDERED: ZIPRASIDONE 20 MG CAP PO SCH (21:00)
[2017-07-20] MEDS ORDERED: ZIPRASIDONE 80 MG CAP PO SCH (21:00)
[2017-07-20 21:26] LABS: RAPID PLASMA REAGIN NONREACTIVE (NONREACT)
[2017-07-26 08:55] LABS: ALBUMIN 3.9 g/dL (3.7-5.1); IGG CSF 11.1 mg/dL (0.8-7.7); IGG SERUM 1130 mg/dL (694-1618); LYME IGG CSF NO BANDS DETECTED; LYME IGM CSF NO BANDS DETECTED; MYELIN BASIC PROTEIN 663 4.2 mcg/L (0.0-4.0)
--- NOTE | 2017-08-02 07:49 | Discharge Summary ---
Discharge Summary Date of Service Jul 20, 2017. Discharge Summary Admission Date: Jul 20, 2017 at 13:35 Discharge Date: Jul 20, 2017 Discharge Disposition: Personal care Principal Diagnosis: Possible multiple sclerosis Problems/Secondary Diagnoses: Bipolar disorder Procedures: Lumbar puncture, diagnostic Consultations: Neurology Medication Reconciliation New Medications: Methylprednisolone Sod Succ (Solu-Medrol) 1,000 Mg Inj 1000 MG IV DAILY for 4 Days, #4 DOSE 0 Refills Continued Medications: Bupropion (Wellbutrin) 75 Mg Tab 150 MG PO BID, TAB Clonidine Hcl (Catapres) 0.1 Mg Tab 0.1 MG PO QAM for 90 Days, #90 TAB 3 Refills Clonidine Hcl (Catapres) 0.2 Mg Tab 0.2 MG PO HS, TAB Diphenhydramine Hcl (Sleep) (Diphenhydramine Hcl) 50 Mg Tab 1 TAB PO HS for 30 Days, #30 TAB 1 Refill Ziprasidone Hcl (Geodon) 40 Mg Cap 80 MG PO BID, CAP TOTAL OF 140 MG BID Ziprasidone Hcl (Geodon) 60 Mg Cap 60 MG PO BID, CAP TOTAL OF 140 MG BID Discharge Exam Patient tolerated LP well. Discussed plan with Dr. Morrissey, he felt based on the findings on MRI and the patient's symptoms that he could safely start treating for MS. Patient received Solu Medrol 1000mg IV in the hospital with plans for 2 more doses at [facility] and then transition to Medrol dose pack. Discussed plan with patient, he understood. Review of Systems: Constitutional: No fever, No chills, No sweats, No weight loss, No weakness , No fatigue, No problem reported Eyes: No worsening of vision, No eye pain, No redness, No discharge, No diplopia, No problem reported ENT: No hearing loss, No unusual epistaxis, No nasal symptoms, No sore throat, No tinnitus, No dental problems, No trouble swallowing, No problem reported Respiratory: No cough, No sputum, No wheezing, No shortness of breath, No dyspnea on exertion, No dyspnea at rest, No hemoptysis, No problem reported Cardiovascular: No chest pain, No orthopnea, No PND, No edema, No claudication, No palpitations, No problem reported Abdomen: No pain, No nausea, No vomiting, No diarrhea, No constipation, No GI bleeding, No problem reported Musculoskeletal: No joint pain, No muscle pain, No swelling, No calf pain, No problem reported Genitourinary - Male: No hematuria, No dysuria, No urinary frequency, No urinary urgency Neurologic: + weakness, + numbness/tingling, + balance problems, No memory loss, No paralysis, No vertigo Psychiatric: + depression symptoms, + anxiety, No anhedonism, No insomnia, No substance abuse, No problem reported Endocrine: No fatigue, No excessive thirst, No excessive urination, No problem reported Hematologic / Lymphatic: No abnormal bleeding/bruising, No clotting problems , No swollen lymph nodes, No night sweats, No problem reported Integumentary: No rash, No itch, No new/changing skin lesions, No color change, No bleeding, No problem reported Physical Exam: General Appearance: WD/WN, no apparent distress Eyes: normal inspection, EOMI, sclerae normal ENT: normal ENT inspection, hearing grossly normal, pharynx normal Neck: supple, no adenopathy, no JVD, trachea midline Respiratory/Chest: chest non-tender, lungs clear, normal breath sounds, no respiratory distress, no accessory muscle use Cardiovascular: regular rate, rhythm, no edema, no gallop, no JVD, no murmur , normal peripheral pulses Abdomen / GI: normal bowel sounds, non tender, soft, no organomegaly Extremities: normal inspection, no calf tenderness, normal capillary refill , no pedal edema, normal range of motion, pelvis stable 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 Lower extremity numbness/tingling with diplopia changes on MRI brain consistent with multiple areas of possible demyelination discussed with Dr. Morrissey, LP ordered with studies for proteins, oligoclonal bands serum RPR, Lyme ordered after LP patient given Solu Medrol 1gm IV d/c back to [facility] for more doses of Solu Medrol IV followed by Medrol Dose pack B12 and folate normal follow up with neurology in 1-2 weeks after results from LP are back, will discuss snf treatment of MS Psychiatry: Continue [id number] mg BID, Catapres 0.2 mg BID. Wellbutrin 150 mg BID DVT prophylaxis: Lovenox SQ Code Status: LEVEL I, FULL Dispo: From [facility] Total Time Spent: Greater than 30 minutes This includes examination of the patient, discharge planning, medication reconciliation, and communication with other providers. Discharge Instructions Please refer to the electronic Patient Visit Report (Discharge Instructions) for additional information. Follow-Up Dr. Morrissey in 1-2 weeks Additional Copies To Toney Morrissey M.D.; [facility]
== END 2017-07-20 20:42 | DRG 60 ==
LOC: C.EDB 12:32 → C.MS2W 17:35 → ENRESERV 17:54 → OBSVTOIN 07-20 13:35
PROVIDERS: ADMIT Family Medicine; ATTEND Internal Medicine
PROC: 009U3ZX Drainage of Spinal Canal, Percutaneous Approach, Diagnostic (ICD-10-PCS; principal; 2017-07-20)
DX: G35 Multiple sclerosis (principal); H49.21 Sixth [abducent] nerve palsy, right eye; F17.210 Nicotine dependence, cigarettes, uncomplicated; H53.2 Diplopia; Z86.19 Personal history of other infectious and parasitic diseases

== ENCOUNTER 2020-09-07 15:02 | Observation (INO) ==
[2020-09-07] MEDS ORDERED: SODIUM CHLORIDE 0.9% 1000ML 1,000 ML IV SCH ×2 (15:15→19:15)
[2020-09-07 15:35] LABS: Basophils # (auto) 0.05 K/uL (0-0.2); Basophils % (auto) 0.6 %; Eosinophils % (auto) 3.6 %; Hemoglobin 15.6 g/dL (14.0-18.0); Immature Granulocytes # (auto) 0.02 K/uL (0.00-0.02); Immature Granulocytes % (auto) 0.2 %; Lymphocytes # (auto) 1.65 K/uL (1.2-3.4); Mean Corpuscular Hemoglobin 32.5 pg (25-34); Mean Corpuscular Hgb Conc 33.9 g/dL (32-36); Mean Corpuscular Volume 95.8 fL (80-100); Mean Platelet Volume 9.6 fL (7.4-10.4); Monocytes # (auto) 0.58 K/uL (0.11-0.59); Neutrophils # (auto) 5.66 K/uL (1.4-6.5); Neutrophils % (auto) 68.6 %; Platelet Count 290 K/uL (130-400); RDW Coefficient of Variation 12.9 % (11.5-14.5); RDW Standard Deviation 45.4 fL (36.4-46.3); White Blood Count 8.26 K/uL (4.8-10.8)
[2020-09-07 15:43] LABS: iSTAT Creatinine 0.8 mg/dl (0.6-1.3); iSTAT Hemoglobin 16.3 g/dl (14.0-18.0); iSTAT Ionized Calcium 1.28 mmol/l (1.12-1.32); iSTAT Potassium 4.6 mmol/L (3.3-5.0)
[2020-09-07 15:47] LABS: Partial Thromboplastin Ratio 0.9; Partial Thromboplastin Time 24.4 Seconds (21.0-31.0); Prothrombin Time 10.7 Seconds (9.0-12.0)
[2020-09-07 15:54] LABS: Albumin Level 4.3 gm/dl (3.4-5.0); BUN Creatinine Ratio 17.6 (10-20); Calcium 9.4 mg/dl (8.5-10.1); Creatinine Clr Calc Pharmacy 143.5 ml/min; Est GFR (African American) 131.7; Est GFR (Non-African American) 113.7; Potassium 4.6 mmol/L (3.5-5.1)
--- NOTE | 2020-09-07 15:56 | Emergency Department Note ---
Impression & Plan Suicide attempt, Suicide attempt by hanging, Syncope, Elevated troponin I level, FB GI (foreign body in gastrointestinal tract) ED Provider Note NAME: JUDIE MALHOTRA [id number] CYNTHIA AGE: 30 SEX: M : 1990 ARRIVES VIA: Ambulance INFORMANT: Patient, the prehospital personnel ED PROVIDER(S): Jerald Flanagan DO CHIEF COMPLAINT: Attempted hanging HPI: The patient is a 30-year-old male who presented to the emergency department by ambulance after an attempted hanging. The patient had a sheet wrapped around his neck. He states he tied it to the ceiling and then "sat down". The patient did have a loss of consciousness. When the guards found him this way they pepper sprayed his face to be sure he was not faking it. The patient presented to the emergency department immobilized on a long spine board in a rigid cervical collar. He denies having any headache nausea or vomiting. He does complain of some anterior neck pain. The patient denies having any difficulty breathing. His oxygen saturation was reportedly normal. He also states that he swallowed multiple metal foreign bodies over the last few days in an attempt to harm himself. He has significant suicidal ideation. At this time he is very depressed. [facility] The patient was awake and alert [facility]. He was sent to the emergency department for further evaluation. ROS: See above HPI for pertinent positives & negatives. A total of 10 systems reviewed and were otherwise negative. PAST MEDICAL HISTORY: See Below PAST SURGICAL HISTORY: See Below FAMILY HISTORY: See Below SOCIAL HISTORY: See Below HOME MEDICATIONS: See Below ALLERGIES: See Below VITALS: See Below PHYSICAL EXAMINATION: GENERAL: The patient is awake and alert. He is somewhat anxious appearing but overall comfortable. EYES: The conjunctivae are injected bilaterally. The pupils are normal size and reactive bilaterally. EARS, NOSE, MOUTH AND THROAT: The nose is without any evidence of any deformity. Mucous membranes are moist. NECK: There is no posterior tenderness to palpation. Range of motion is intact. There is minimal anterior tenderness over the larynx. There is no crepitus. RESPIRATORY: Normal respiratory effort is noted there is no evidence of wheezing rhonchi or rales CARDIOVASCULAR: Regular rate and rhythm noted there no murmurs rubs or gallops normal S1 normal S2. GASTROINTESTINAL: The abdomen is soft. Abdomen is nontender. MUSCULOSKELETAL/EXTREMITIES: There is no evidence of gross deformity full range of motion is noted in the hips and shoulders. SKIN: There is petechia over the face. There is no edema in the lower extremities. NEUROLOGIC: Patient is awake alert and oriented x3 strength is symmetric patellar reflexes are 2+ bilaterally PSYCH: The patient is awake and alert. His affect is flat. He is currently admitting to suicidal ideation. MEDICAL DECISION MAKING: The patient is a 30-year-old male who presented to the emergency department from the [facility] after an attempted suicide by hanging. The patient was awake and alert upon arrival. He does have some anterior neck tenderness but CT does not show any vascular soft tissue or airway compromise. I discussed the patient's laboratory and radiographic studies with him. He did admit to swallowing multiple GI foreign bodies but he does not have a surgical abdomen on physical exam and does not have signs of perforation on CT. The patient was found to have an elevated troponin which is likely due to the hanging episode. For this reason I discussed his case with the on-call [facility] hospitalist. They have agreed to evaluate the patient in the emergency department for further management and disposition. The patient was reevaluated multiple times. He was treated with IV fluids. Triage Nursing notes reviewed. Prior medical records reviewed Vital Signs: reviewed and remarkable for hypotension. Differential diagnosis: Mood disorder, infection, hypoglycemia, electrolyte abnormalities, cardiac sources, intracerebral event, toxicologic, trauma, neurologic, as well as other pathologies. ER treatment provided: See below Diagnostics interpreted by me: ECG: EKG was obtained in the emergency department. My interpretation is normal sinus rhythm at 81 bpm. There was no ectopy. There was no acute ST segment abnormalities noted. This was compared to a tracing from July 192016. No significant changes were noted. Cardiac Monitoring: An order was placed for continuous cardiac monitoring. The monitor shows a rate of 82 bpm with sinus rhythm. Laboratory studies: As stated above and show below. Imaging studies: See below Consultation(s): 5328: I discussed this case with Dr. Pacheco. Past Med/Surg History Medical History Chronic pain Hepatitis B Intermittent explosive disorder Multiple sclerosis Muscle spasticity Surgical History No history of previous surgery Family History Father Diabetes Thyroid disease Social History Smoking Status: Unknown if ever smoked Hx Alcohol Use: No Hx Substance Use: No Preferred Language: Slovak Feels Safe at Home: Yes Allergies Allergies Allergy/AdvReac Type Severity Reaction Status Date / Time No Known Allergies Allergy Verified 09/07/20 16:35 Home Meds Home Medications Medication Instructions Recorded Confirmed baclofen 20 mg tablet 20 mg PO BID PRN tab 08/01/19 09/07/20 bupropion HCl 75 mg tablet 150 mg PO BID tab 08/01/19 09/07/20 cholecalciferol (vitamin D3) 25 1,000 units PO DAILY 08/01/19 09/07/20 mcg (1,000 unit) capsule Vemlidy 25 mg PO QAM 02/12/20 09/07/20 dimethyl fumarate [Tecfidera] 240 mg PO BID 02/12/20 09/07/20 gabapentin 1,200 mg PO BID 02/12/20 09/07/20 tizanidine 4 mg PO BID 02/12/20 09/07/20 doxepin 50 mg PO HS 09/07/20 09/07/20 mirtazapine 15 mg PO HS 09/07/20 09/07/20 olanzapine 10 mg PO HS 09/07/20 09/07/20 ziprasidone HCl 0 mg PO UD 09/07/20 09/07/20 Results & Data (ED) Vital Signs Vital Signs - 24 hr 09/07/20 15:11 Temperature 36.9 C Temperature Source Oral Pulse Rate 83 Pulse Rhythm Regular Pulse Strength Normal Respiratory Rate 16 Respiratory Effort / Characteristics Non-Labored Respiratory Depth Normal Respiratory Pattern Regular Blood Pressure 93/62 L Blood Pressure Mean 72 Blood Pressure Position Lying Pulse Oximetry 98 Oxygen Delivery Method Room Air Sepsis Recent Fever Within 48 Hours No Sepsis New/Unexplained Change in Mental Status N/A Sepsis Action Taken by Nursing No Action Required Home Medications Current Medication List: was personally reviewed by me Laboratory Data Attestation: I reviewed the patient's lab results. Result diagrams: 09/07/20 15:22 09/07/20 15:22 Lab Results 10/10/20 10/10/20 10/10/20 Range/Units 15:22 15:22 15:22 WBC 8.26 (4.8-10.8) K/uL RBC 4.80 (4.7-6.1) M/uL Hgb 15.6 (14.0-18.0) g/dL POC Hgb (14.0-18.0) g/dl Hct 46.0 (42-52) % POC Hct (42-52) % MCV 95.8 (80-100) fL MCH 32.5 (25-34) pg MCHC 33.9 (32-36) g/dL RDW Std Deviation 45.4 (36.4-46.3) fL RDW Coeff of Milton 12.9 (11.5-14.5) % Plt Count 290 (130-400) K/uL MPV 9.6 (7.4-10.4) fL Immature Gran % (Auto) 0.2 % Neut % (Auto) 68.6 % Lymph % (Auto) 20.0 % Willacy % (Auto) 7.0 % Eos % (Auto) 3.6 % Baso % (Auto) 0.6 % Neut # (Auto) 5.66 (1.4-6.5) K/uL Lymph # (Auto) 1.65 (1.2-3.4) K/uL Willacy # (Auto) 0.58 (0.11-0.59) K/uL Eos # (Auto) 0.30 (0-0.5) K/uL Baso # (Auto) 0.05 (0-0.2) K/uL Immature Gran # (Auto) 0.02 (0.00-0.02) K/uL PT 10.7 (9.0-12.0) Seconds INR 1.0 (0.9-1.1) APTT 24.4 (21.0-31.0) Seconds PTT Ratio 0.9 POC Sodium (135-144) mmol/L Sodium 141 (136-145) mmol/L POC Potassium (3.3-5.0) mmol/L Potassium 4.6 (3.5-5.1) mmol/L POC Chloride (101-112) mmol/L Chloride 108 H (98-107) mmol/L Carbon Dioxide 32 (21-32) mmol/L POC Total CO2 (24-31) mmol/L Anion Gap 1.0 L (3-11) POC Anion Gap (16-25) mmol/L POC BUN (7-18) mg/dl BUN 15 (7-18) mg/dl Creatinine 0.88 (0.6-1.4) mg/dl POC Creatinine (0.6-1.3) mg/dl Est Cr Clr Drug Dosing 143.5 ml/min Est GFR ( Amer) 131.7 Est GFR (Non-Af Amer) 113.7 BUN/Creatinine Ratio 17.6 (10-20) Glucose 106 H (70-99) mg/dl POC Glucose (other) (70-99) mg/dl Calcium 9.4 (8.5-10.1) mg/dl POC Ioniz Calcium Patric (1.12-1.32) mmol/l Total Bilirubin 0.5 (0.2-1) mg/dl AST 17 (15-37) U/L ALT 31 (12-78) U/L Alkaline Phosphatase 68 (45-117) U/L Troponin I 0.083 H* (0-0.045) ng/ml Total Protein 7.9 (6.4-8.2) gm/dl Albumin 4.3 (3.4-5.0) gm/dl Globulin 3.6 (2.5-4.0) gm/dl Albumin/Globulin Ratio 1.2 (0.9-2) Lipase 68 L (73-393) U/L 09/07/20 Range/Units 15:31 WBC (4.8-10.8) K/uL RBC (4.7-6.1) M/uL Hgb (14.0-18.0) g/dL POC Hgb 16.3 (14.0-18.0) g/dl Hct (42-52) % POC Hct 48 (42-52) % MCV (80-100) fL MCH (25-34) pg MCHC (32-36) g/dL RDW Std Deviation (36.4-46.3) fL RDW Coeff of Milton (11.5-14.5) % Plt Count (130-400) K/uL MPV (7.4-10.4) fL Immature Gran % (Auto) % Neut % (Auto) % Lymph % (Auto) % Willacy % (Auto) % Eos % (Auto) % Baso % (Auto) % Neut # (Auto) (1.4-6.5) K/uL Lymph # (Auto) (1.2-3.4) K/uL Willacy # (Auto) (0.11-0.59) K/uL Eos # (Auto) (0-0.5) K/uL Baso # (Auto) (0-0.2) K/uL Immature Gran # (Auto) (0.00-0.02) K/uL PT (9.0-12.0) Seconds INR (0.9-1.1) APTT (21.0-31.0) Seconds PTT Ratio POC Sodium 143 (135-144) mmol/L Sodium (136-145) mmol/L POC Potassium 4.6 (3.3-5.0) mmol/L Potassium (3.5-5.1) mmol/L POC Chloride 103 (101-112) mmol/L Chloride (98-107) mmol/L Carbon Dioxide (21-32) mmol/L POC Total CO2 27 (24-31) mmol/L Anion Gap (3-11) POC Anion Gap 19.0 (16-25) mmol/L POC BUN 16 (7-18) mg/dl BUN (7-18) mg/dl Creatinine (0.6-1.4) mg/dl POC Creatinine 0.8 (0.6-1.3) mg/dl Est Cr Clr Drug Dosing ml/min Est GFR ( Amer) Est GFR (Non-Af Amer) BUN/Creatinine Ratio (10-20) Glucose (70-99) mg/dl POC Glucose (other) 105 H (70-99) mg/dl Calcium (8.5-10.1) mg/dl POC Ioniz Calcium Patric 1.28 (1.12-1.32) mmol/l Total Bilirubin (0.2-1) mg/dl AST (15-37) U/L ALT (12-78) U/L Alkaline Phosphatase (45-117) U/L Troponin I (0-0.045) ng/ml Total Protein (6.4-8.2) gm/dl Albumin (3.4-5.0) gm/dl Globulin (2.5-4.0) gm/dl Albumin/Globulin Ratio (0.9-2) Lipase (73-393) U/L Administered Medications Discontinued Medications Sodium Chloride (Nss 1000ml) 1,000 mls @ 999 mls/hr IV .Q1H1M SUSAN Stop: 09/07/20 16:15 Last Infusion: 09/07/20 16:43 Dose: 0 mls/hr Documented by: [id number] Admin: 09/07/20 15:40 Dose: 999 mls/hr Documented by: [id number] Ioversol (Optiray 320 125ml) 118 ml IV ONCE ONE Stop: 09/07/20 16:20 Last Admin: 09/07/20 16:19 Dose: 118 ml Documented by: [id number] Imaging Data Radiologist's Impression: Patient: JUDIE MARIE [id number] Admit Date: 09/07/20 MR#: [id number] Address1: [facility] [address] Acct ID:[id number] Address2: [facility] Date: 1990 [facility] Zip: [place] [address] Age: 30 Location: ED Sex: M Room/Bed: Att Phy: Diagnosis: NECK TRAUMA, ATTEMPTED HANGING Pushpa Phy: Piggybackrner Service Date: 09/07/20 Fam Phy: Interpreting Phy: See Andersen MD Admit Phy: Ordering Phy: Jerald Flanagan DO cc: ~ XR chest 1V portable CLINICAL HISTORY: Chest Pain COMPARISON STUDY: Chest radiograph February 12, 2020. FINDINGS: Lung volumes are normal. Lungs are clear. There is no pneumothorax or pleural effusion. Cardiac size is normal. Mediastinal contours are normal. There is no evidence for pulmonary edema. IMPRESSION: No acute cardiopulmonary findings. ACT 112: Negative or not required by law. Electronically signed by: See Andersen M.D. 09/07/2020 3:58 PM Dictated: 09/07/20 1557 Transcribed: 09/07/20 1557 Patient: JUDIE MARIE [id number] Admit Date: 09/07/20 MR#: [id number] Address1: [facility] [address] Acct ID:[id number] Address2: [facility] [place] Date: 1990 [facility] Zip: [place] [address] Age: 30 Location: ED Sex: M Room/Bed: Att Phy: Diagnosis: NECK TRAUMA, ATTEMPTED HANGING Pushpa Phy: ASHLYN Edmondner Service Date: 09/07/20 [facility] Phy: Interpreting Phy: See Andersen MD Admit Phy: Ordering Phy: Jerald Flanagan DO cc: ~ CT ANGIOGRAPHY OF THE NECK WITH CONTRAST CLINICAL HISTORY: Attempted hanging COMPARISON STUDY: No previous studies for comparison. Technique: CT angiography of the carotid and vertebral arteries was obtained using Optiray 320 IV and 3D reconstruction on an independent workstation. NASCET criteria was utilized. Automated exposure control was utilized for the study. A dose lowering technique was utilized adhering to the principles of ALARA. Findings: There is no cervical spine fracture. No hematoma within the neck is noted. Alignment of the cervical spine is anatomic. Current cervical junction is intact. The bilateral common carotid, cervical internal carotid and vertebral arteries are patent. There is no evidence for vascular injury to the major vessels within neck on this examination. The CTA of the head will be reported separately. There is mild sinus mucosal thickening. IMPRESSION: 1. Unremarkable CTA of the neck. No evidence for vascular injury. No hematoma within the neck. 2. No cervical spine fracture. ACT 112: Negative or not required by law. Electronically signed by: See Andersen M.D. 09/07/2020 4:33 PM Dictated: 09/07/201628 Transcribed: 09/07/201628 Patient: JUDIE MARIE [id number] Admit Date: 09/07/20 MR#: [id number] Address1: [address] [place] [address] DRIVE Acct ID:[id number] Address2: [facility] Date: 1990 [facility] Zip: [place] [address] Age: 30 Location: ED Sex: M Room/Bed: Att Phy: Diagnosis: NECK TRAUMA, ATTEMPTED HANGING Pushpa Phy: ASHLYN Flood Service Date: 09/07/20 [place] Phy: Interpreting Phy: See Andersen MD Admit Phy: Ordering Phy: Jerald Flanagan DO cc: ~ CTA ANGIOGRAPHY OF THE HEAD CLINICAL HISTORY: Attempted hanging COMPARISON STUDY: No previous studies for comparison. TECHNIQUE: Helical axial images of the head were obtained following uneventful intravenous administration of 118 cc of Optiray 320. Sagittal and coronal reconstructions were viewed as well as maximal intensity projections on an independent 3-D workstation. Automated exposure control was utilized for the study. A dose lowering technique was utilized adhering to the principles of ALARA. FINDINGS: Several white matter hypodense foci are better depicted on the head CT which will be reported separately. Mild sinus mucosal thickening is present. The bilateral M1, M2, A1 and A2 segments are patent. There is no intraluminal thrombus. No central vessel occlusion is noted. There is no dissection. No abrupt vessel cut off is identified. No acute intracranial hemorrhage, midline shift or mass effect is present. IMPRESSION: 1. Unremarkable CTA of the intracranial vessels. 2. White matter hypodensities which are better depicted on the unenhanced head CT which will be reported separately. ACT 112: Negative or not required by law. Electronically signed by: See Andersen M.D. 09/07/2020 4:41 PM Dictated: 09/07/201638 Transcribed: 09/07/201638 Patient: JUDIE MARIE [id number] Admit Date: 09/07/20 MR#: [id number] Address1: [address] [place] [address] DRIVE Acct ID:[id number] Address2: [facility] Date: 1990 [facility] Zip: [place] [address] Age: 30 Location: ED Sex: M Room/Bed: Att Phy: Diagnosis: NECK TRAUMA, ATTEMPTED HANGING Pushpa Phy: ASHLYN Flood Service Date: 09/07/20 Fam Phy: Interpreting Phy: See Andersen MD Admit Phy: Ordering Phy: Jerald Flanagan DO cc: ~ CT OF THE HEAD WITHOUT CONTRAST CLINICAL HISTORY: Attempted hanging COMPARISON STUDY: Head CT July 03, 2017. MRI of the brain September 06, 2018. TECHNIQUE: Helical axial images of the head were obtained without IV contrast. Automated exposure control was utilized for the study. A dose lowering technique was utilized adhering to the principles of ALARA. FINDINGS: No acute intracranial hemorrhage, midline shift or mass effect is present. Several right matter hypodense foci are noted, largest of which is a 1.6 cm hypodensity within the white matter the left frontal lobe shown on axial image 18. The ventricular system is unremarkable. The basilar cisterns are patent. No extra-axial collections are present. There are no findings to suggest acute dural sinus thrombosis or acute territorial infarct. No significant calvarial abnormalities are present. Visualized portions of the sinuses and mastoid air cells are clear. IMPRESSION: 1. No acute intracranial findings. 2. White matter hypodense foci, measuring up to 1.6 cm. When correlating with prior MRI of September 16, 2018, these favor foci of demyelination however several white matter foci are likely new since prior exam and several are less conspicuous. Multiple sclerosis is the primary consideration. Lyme disease could appear similar. ACT 112: Negative or not required by law. Electronically signed by: See Andersen M.D. 09/07/2020 4:29 PM Dictated: 09/07/201624 Transcribed: 09/07/201624 Patient: JUDIE MARIE [id number] Admit Date: 09/07/20 MR#: [id number] Address1: [address] Acct ID:[id number] Address2: [facility] Date: 1990 [facility] Zip: [place] [address] Age: 30 Location: ED Sex: M Room/Bed: Att Phy: Diagnosis: NECK TRAUMA, ATTEMPTED HANGING Pushpa Phy: ASHLYN Flood Service Date: 09/07/20 Fam Phy: Interpreting Phy: See Andersen MD Admit Phy: Ordering Phy: Jerald Flanagan DO cc: ~ CT OF THE CHEST WITH IV CONTRAST CLINICAL HISTORY: Attempted hanging COMPARISON STUDY: Chest radiograph February 12, 2020. TECHNIQUE: Following IV administration of 118 mL of Optiray-320, helical axial images of the chest were obtained. Sagittal and coronal reconstructions were viewed as well as maximal intensity projections on an independent 3-D workstation. Automated exposure control was utilized for the study. A dose lowering technique was utilized adhering to the principles of ALARA. FINDINGS: There is no evidence for traumatic injury to the thoracic aorta. The size of the heart is normal. There is no pericardial effusion. No pneumothorax or pleural effusion is noted. No acute rib or thoracic spine fracture is noted. There is no pulmonary contusion. Multiple ingested metallic foreign bodies withi n the abdomen are better depicted on the CT of the abdomen and pelvis. IMPRESSION: 1. No acute traumatic findings within the chest. 2. Multiple ingested metallic foreign bodies within the abdomen, better depicted on the CT of the abdomen and pelvis. Please see that report for further description. ACT 112: Negative or not required by law. Electronically signed by: See Andersen M.D. 09/07/2020 4:45 PM Dictated: 09/07/201641 Transcribed: 09/07/201641 Patient: JUDIE MARIE [id number] Admit Date: 09/07/20 MR#: [id number] Address1: [address] Acct ID:[id number] Address2: [place] Date: 1990 [facility] Zip: [place] [address] Age: 30 Location: ED Sex: M Room/Bed: Att Phy: Diagnosis: NECK TRAUMA, ATTEMPTED HANGING Pushpa Phy: ASHLYN Flood Service Date: 09/07/20 [facility] Phy: Interpreting Phy: See Andersen MD Admit Phy: Ordering Phy: Jerald Flanagan, cc: ~ CT OF THE ABDOMEN AND PELVIS WITHOUT CONTRAST CLINICAL HISTORY: Swallowed foreign body COMPARISON STUDY: CT of the abdomen and pelvis February 12, 2020. TECHNIQUE: Axial images of the abdomen and pelvis were obtained without IV contrast. Images were reviewed in the axial, sagittal, and coronal planes. Automated exposure control was utilized for the study. A dose lowering technique was utilized adhering to the principles of ALARA. FINDINGS: No pneumatosis, free air or portal venous gas is present. Unenhanced images of the liver, spleen, adrenal glands, right kidney and pancreas are normal. There is a 3 and a left renal calculus. Caliber and wall thickness of s mall and large bowel are normal. Note is made of an elongated 10 cm foreign body within the proximal transverse colon suggestive of a pen. There is a 7 cm metallic foreign body within the ascending colon. There is an additional 9 mm metallic foreign body likely within the jejunum. No additional radiopaque foreign bodies are present. Bladder is mildly distended. Appendix is normal. There is a moderate amount stool within the colon. No acute pelvic or hip fracture is identified. IMPRESSION: 1. Three ingested foreign bodies, including a 10 cm elongated foreign body suggestive of a pen within the proximal transverse colon, a 7 cm metallic foreign body within the ascending colon and a 9 cm metallic foreign body within the jejunum. No free air. 2. 3 mm left renal calculus. ACT 112: Negative or not required by law. Electronically signed by: See Andersen M.D. 09/07/2020 4:55 PM Dictated: 09/07/201649 Transcribed: 09/07/201649 Blood Pressure Blood Pressure Findings: Low blood pressure Discharge Plan Visit Data Chief Complaint: Neck Injury/Pain Stated Complaint: NECK TRAUMA, ATTEMPTED HANGING ED Provider: Jerald Flanagan Discharge Problem: Suicide attempt, Suicide attempt by hanging, Syncope, Elevated troponin I level, FB GI (foreign body in gastrointestinal tract) Patient Disposition: Being Evaluated by Hospitalist Condition: Good Forms Stand Alone Forms: My [facility] [place] [facility] Prescriptions Prescriptions: No Action baclofen 20 mg tablet 20 mg PO BID PRN (Reason: spasticity) RF: 0 bupropion HCl 75 mg tablet 150 mg PO BID RF: 0 cholecalciferol (vitamin D3) 1,000 unit capsule 1,000 units PO DAILY RF: 0 doxepin 50 mg Capsule 50 mg PO HS RF: 0 olanzapine 10 mg Tablet 10 mg PO HS RF: 0 mirtazapine 30 mg Tablet 15 mg PO HS RF: 0 ziprasidone HCl 60 mg Capsule 0 mg PO UD RF: 0 gabapentin 600 mg Tablet 1,200 mg PO BID RF: 0 tizanidine 4 mg Capsule 4 mg PO BID RF: 0 dimethyl fumarate [Tecfidera] 240 mg Capsule,Delayed Release(Dr/Ec) 240 mg PO BID RF: 0 Vemlidy 25 mg Tablet 25 mg PO QAM RF: 0 Referrals Referrals: Aleena GOLDBERG [Primary Care Provider] - Discharge Problem: Suicide attempt by hanging Qualifiers: Encounter type: initial encounter Qualified Code(s): T71.162A - Asphyxiation due to hanging, intentional self-harm, initial encounter Syncope Qualifiers: Syncope type: unspecified Qualified Code(s): R55 - Syncope and collapse FB GI (foreign body in gastrointestinal tract) Qualifiers: Encounter type: initial encounter Qualified Code(s): T18.9XXA - Foreign body of alimentary tract, part unspecified, initial encounter
--- NOTE | 2020-09-07 16:00 | XRay Report ---
XR chest 1V portable CLINICAL HISTORY: Chest Pain COMPARISON STUDY: Chest radiograph February 12, 2020. FINDINGS: Lung volumes are normal. Lungs are clear. There is no pneumothorax or pleural effusion. Car diac size is normal. Mediastinal contours are normal. There is no evidence for pulmonary edema. IMPRESSION: No acute cardiopulmonary findings. ACT 112: Negative or not required by law. Electronically signed by: See Andersen M.D. 09/07/2020 3:58 PM
[2020-09-07 16:03] LABS: Albumin Globulin Ratio 1.2 (0.9-2); Bilirubin,Total 0.5 mg/dl (0.2-1); Globulin 3.6 gm/dl (2.5-4.0); Total Protein 7.9 gm/dl (6.4-8.2); Troponin I 0.083 ng/ml (0-0.045)
[2020-09-07] MEDS ORDERED: SODIUM CHLORIDE 0.9% 1000ML 1,000 ML IV ONE (16:15)
[2020-09-07] MEDS ORDERED: OPTIRAY 320 125ml IV ONE (16:19)
--- NOTE | 2020-09-07 16:30 | CT Scan Report ---
CT OF THE HEAD WITHOUT CONTRAST CLINICAL HISTORY: Attempted hanging COMPARISON STUDY: Head CT July 03, 2017. MRI of the brain September 06, 2018. TECHNIQUE: Helical axial images of the head were obtained without IV contrast. Automated exposure con trol was utilized for the study. A dose lowering technique was utilized adhering to the principles o f ALARA. FINDINGS: No acute intracranial hemorrhage, midline shift or mass effect is present. Several right ma tter hypodense foci are noted, largest of which is a 1.6 cm hypodensity within the white matter the l eft frontal lobe shown on axial image 18. The ventricular system is unremarkable. The basilar cistern s are patent. No extra-axial collections are present. There are no findings to suggest acute dural si nus thrombosis or acute territorial infarct. No significant calvarial abnormalities are present. Visu alized portions of the sinuses and mastoid air cells are clear. IMPRESSION: 1. No acute intracranial findings. 2. White matter hypodense foci, measuring up to 1.6 cm. When correlating with prior MRI of August, these favor foci of demyelination however several white matter foci are likely new since prio r exam and several are less conspicuous. Multiple sclerosis is the primary consideration. Lyme diseas e could appear similar. ACT 112: Negative or not required by law. Electronically signed by: See nAdersen M.D. 09/07/2020 4:29 PM
--- NOTE | 2020-09-07 16:34 | CT Scan Report ---
CT ANGIOGRAPHY OF THE NECK WITH CONTRAST CLINICAL HISTORY: Attempted hanging COMPARISON STUDY: No previous studies for comparison. Technique: CT angiography of the carotid and vertebral arteries was obtained using Access Intelligence 320 IV and 3D reconstruction on an independent workstation. NASCET criteria was utilized. Automated exposure c ontrol was utilized for the study. A dose lowering technique was utilized adhering to the principles of ALARA. Findings: There is no cervical spine fracture. No hematoma within the neck is noted. Alignment of the cervical spine is anatomic. Current cervical junction is intact. The bilateral common carotid, cervi paul internal carotid and vertebral arteries are patent. There is no evidence for vascular injury to t he major vessels within neck on this examination. The CTA of the head will be reported separately. Th ere is mild sinus mucosal thickening. IMPRESSION: 1. Unremarkable CTA of the neck. No evidence for vascular injury. No hematoma within the neck. 2. No cervical spine fracture. ACT 112: Negative or not required by law. Electronically signed by: See Andersen M.D. 09/07/2020 4:33 PM
--- NOTE | 2020-09-07 16:43 | CT Scan Report ---
CTA ANGIOGRAPHY OF THE HEAD CLINICAL HISTORY: Attempted hanging COMPARISON STUDY: No previous studies for comparison. TECHNIQUE: Helical axial images of the head were obtained following uneventful intravenous administr ation of 118 cc of Optiray 320. Sagittal and coronal reconstructions were viewed as well as maximal i ntensity projections on an independent 3-D workstation. Automated exposure control was utilized for the study. A dose lowering technique was utilized adhering to the principles of ALARA. FINDINGS: Several white matter hypodense foci are better depicted on the head CT which will be report ed separately. Mild sinus mucosal thickening is present. The bilateral M1, M2, A1 and A2 segments are patent. There is no intraluminal thrombus. No central vessel occlusion is noted. There is no dissect ion. No abrupt vessel cut off is identified. No acute intracranial hemorrhage, midline shift or mass effect is present. IMPRESSION: 1. Unremarkable CTA of the intracranial vessels. 2. White matter hypodensities which are better depicted on the unenhanced head CT which will be repor elena separately. ACT 112: Negative or not required by law. Electronically signed by: See Andersen M.D. 09/07/2020 4:41 PM
--- NOTE | 2020-09-07 16:47 | CT Scan Report ---
CT OF THE CHEST WITH IV CONTRAST CLINICAL HISTORY: Attempted hanging COMPARISON STUDY: Chest radiograph February 12, 2020. TECHNIQUE: Following IV administration of 118 mL of Optiray-320, helical axial images of the chest w ere obtained. Sagittal and coronal reconstructions were viewed as well as maximal intensity projecti ons on an independent 3-D workstation. Automated exposure control was utilized for the study. A dos e lowering technique was utilized adhering to the principles of ALARA. FINDINGS: There is no evidence for traumatic injury to the thoracic aorta. The size of the heart is normal. There is no pericardial effusion. No pneumothorax or pleural effusion is noted. No acute rib or thoracic spine fracture is noted. There is no pulmonary contusion. Multiple ingested metallic fore ign bodies within the abdomen are better depicted on the CT of the abdomen and pelvis. IMPRESSION: 1. No acute traumatic findings within the chest. 2. Multiple ingested metallic foreign bodies within the abdomen, better depicted on the CT of the abd omen and pelvis. Please see that report for further description. ACT 112: Negative or not required by law. Electronically signed by: See Andersen M.D. 09/07/2020 4:45 PM
--- NOTE | 2020-09-07 16:56 | CT Scan Report ---
CT OF THE ABDOMEN AND PELVIS WITHOUT CONTRAST CLINICAL HISTORY: Swallowed foreign body COMPARISON STUDY: CT of the abdomen and pelvis February 12, 2020. TECHNIQUE: Axial images of the abdomen and pelvis were obtained without IV contrast. Images were revi ewed in the axial, sagittal, and coronal planes. Automated exposure control was utilized for the haris dy. A dose lowering technique was utilized adhering to the principles of ALARA. FINDINGS: No pneumatosis, free air or portal venous gas is present. Unenhanced images of the liver, s pleen, adrenal glands, right kidney and pancreas are normal. There is a 3 and a left renal calculus. Caliber and wall thickness of small and large bowel are normal. Note is made of an elongated 10 cm fo reign body within the proximal transverse colon suggestive of a pen. There is a 7 cm metallic foreign body within the ascending colon. There is an additional 9 mm metallic foreign body likely within the jejunum. No additional radiopaque foreign bodies are present. Bladder is mildly distended. Appendix is normal. There is a moderate amount stool within the colon. No acute pelvic or hip fracture is iden tified. IMPRESSION: 1. Three ingested foreign bodies, including a 10 cm elongated foreign body suggestive of a pen within the proximal transverse colon, a 7 cm metallic foreign body within the ascending colon and a 9 cm me tallic foreign body within the jejunum. No free air. 2. 3 mm left renal calculus. ACT 112: Negative or not required by law. Electronically signed by: See Andersen M.D. 09/07/2020 4:55 PM
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
[2020-09-07] MEDS ORDERED: POLYETHYLENE (MIRALAX) 17 GM PACK PO ONE (17:38)
[2020-09-07] MEDS ORDERED: BACLOFEN 20 MG TAB PO PRN (19:15)
[2020-09-07] MEDS ORDERED: ACETAMINOPHEN 325 MG TAB PO PRN (19:15)
[2020-09-07] MEDS ORDERED: NITROGLYCERIN SL 0.4 MG/TAB TAB SL PRN (19:15)
[2020-09-07] MEDS ORDERED: ALUMINUM/MAGNESIUM SUSP 30 ML UDC PO PRN (19:15)
[2020-09-07] MEDS: tiZANidine HCL 4 MG TABLET PO SCH (20:43)
[2020-09-07] MEDS: buPROPion HCl 75 MG TABLET PO SCH (20:44)
[2020-09-07] MEDS: GABAPENTIN 600 MG TAB PO SCH (20:45)
[2020-09-07] MEDS ORDERED: MIRTAZAPINE TAB 15 MG TAB PO SCH (21:00)
[2020-09-07] MEDS ORDERED: DOXEPIN HCL 50 MG CAPSULE PO SCH (21:00)
[2020-09-07] MEDS ORDERED: OLANZapine 10 MG TAB PO SCH (21:00)
[2020-09-08] MEDS: GABAPENTIN 600 MG TAB PO SCH (08:18)
[2020-09-08] MEDS: buPROPion HCl 75 MG TABLET PO SCH (08:19)
[2020-09-08] MEDS: tiZANidine HCL 4 MG TABLET PO SCH (08:20)
--- NOTE | 2020-09-08 12:16 | Electrocardiogram Report ---
Test Reason : Blood Pressure : / mmHG Vent. Rate : 081 BPM Atrial Rate : 081 BPM P-R Int : 162 ms QRS Dur : 100 ms QT Int : 372 ms P-R-T Axes : 060 048 064 degrees QTc Int : 432 ms Normal sinus rhythm Normal ECG When compared with ECG of 19-JUL-2017 15:14, No significant change was found Confirmed by Jerald Jinag ([id number]) on 09/08/2020 12:15:29 PM Referred By: REFERRED SELF Confirmed By:Jerald Jiang
--- NOTE | 2020-09-08 12:25 | Electrocardiogram Report ---
Test Reason : Blood Pressure : / mmHG Vent. Rate : 103 BPM Atrial Rate : 103 BPM P-R Int : 158 ms QRS Dur : 088 ms QT Int : 358 ms P-R-T Axes : 055 036 072 degrees QTc Int : 468 ms Sinus tachycardia Otherwise normal ECG When compared with ECG of 07-SEP-2020 15:44, (unconfirmed) No significant change was found Confirmed by Jerald Jiang ([id number]) on 09/08/2020 12:25:48 PM Referred By: REFERRED SELF Confirmed By:Jerald Jiang
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
== END 2020-09-08 11:50 | DRG 923 ==
LOC: ED 15:02 → INTOOBSV 17:37 → 2S 17:37

== ENCOUNTER 2021-09-26 14:40 | Inpatient (IN) ==
--- NOTE | 2021-09-26 17:28 | XRay Report ---
XR chest 1V portable CLINICAL HISTORY: FB ingestion TECHNIQUE: Single frontal radiograph of the chest was obtained. Comparison: None available at the time of this dictation. FINDINGS: No lines and tubes are seen. The cardiomediastinal silhouette is normal. The lungs are clear. No evid ence of pleural effusion or pneumothorax. IMPRESSION: No radiodense foreign body is seen in the chest. ACT 112: Negative or not required by law. Electronically signed by: Mark Sandoval M.D. 09/26/2021 5:27 PM
--- NOTE | 2021-09-26 17:28 | XRay Report ---
XR KUB/Abdomen 1 view CLINICAL HISTORY: FB ingestion TECHNIQUE: 1 view of the abdomen was obtained. Comparison: None available at the time of this dictation. FINDINGS: Multiple linear metallic densities are seen projecting over the gastric contour. The osseous structur es are grossly unremarkable. The bowel gas pattern is nonobstructive. A moderate amount of stool is n oted within the large bowel. IMPRESSION: Nonobstructive bowel gas pattern. ACT 112: Negative or not required by law. Electronically signed by: Mark Sandoval M.D. 09/26/2021 5:27 PM
--- NOTE | 2021-09-26 18:43 | Emergency Department Note ---
History of Present Illness General Chief complaint: Foreign Body Stated complaint: SWALLOWED BATTERIES & ECIG Time Seen by Provider: 09/26/21 16:57 History of Present Illness This is a 31-year-old male that presents to the emergency department via private vehicle with complaints of "swallowed batteries". The patient notes that he is frustrated with his care for his MS at the correctional facility and has "lost will to live". Patient notes that around 12:45 PM today was when he ingested 13 batteries that are used for an e-cigarette. He notes a very minor epigastric abdominal discomfort. Patient last ate around 11 AM and had 2 small tacos. Patient has ingested foreign bodies previously. Patient denies any other pertinent past medical history or allergies. He does note a history of knee surgery. Home Medications Medication Instructions Recorded Confirmed Type baclofen 20 mg tablet 20 mg PO BID PRN tab 08/01/19 09/26/21 History gabapentin 600 mg tablet 1,800 mg PO BID 02/12/20 09/26/21 History tenofovir alafenamide 25 mg tablet 25 mg PO QAM 02/12/20 09/26/21 History (Vemlidy) olanzapine 15 mg tablet (Zyprexa) 15 mg PO HS 09/01/21 09/26/21 History fluoxetine 20 mg capsule 20 mg PO DAILY 09/26/21 09/26/21 History glatiramer 20 mg/mL subcutaneous 20 mg SUBCUT DAILY 09/26/21 09/26/21 History syringe (Glatopa) Allergies Allergy/AdvReac Type Severity Reaction Status Date / Time No Known Allergies Allergy Verified 09/26/21 18:48 Past Med/Surg History Medical History (Updated 09/26/21 @ 22:35 by Tobin Arciniega PA-C) Chronic pain Hepatitis B Intermittent explosive disorder Multiple sclerosis Muscle spasticity Surgical History No history of previous surgery Family History Father Diabetes Thyroid disease Social History Smoking Status: Current every day smoker Tobacco Type: E-cigarettes / Vaping Hx Alcohol Use: No Hx Substance Use: No Preferred Language: Iranian Communication Ability: Effective Shrinking Machine Operator Required: No Beliefs That Will Affect Care: None Current Living Situation: Other Current Living Situation Comment: [facility] Feels Safe at Home: Yes Assistive Devices: None Review of Systems A total of 10 systems reviewed and were otherwise negative Physical Exam Vital Signs Vital Signs - 24 hr 09/26/21 14:45 09/26/21 18:40 09/26/21 20:30 Temperature 36.6 C 36.6 C 36.8 C Temperature Source Temporal Artery Scan Oral Oral Pulse Rate 77 74 Pulse Rate [Apical] Pulse Rhythm [Apical] Respiratory Rate 20 18 17 Respiratory Effort / Characteristics Non-Labored Spontaneous Respiratory Depth Normal Blood Pressure 128/73 137/74 Blood Pressure [Right Arm] 117/77 Blood Pressure Mean 91 Blood Pressure Mean [Right Arm] 90 Pulse Oximetry 98 99 98 Oxygen Delivery Method Room Air Room Air Room Air Oxygen Flow Rate Sepsis Recent Fever Within 48 Hours No Sepsis New/Unexplained Change in Mental Status N/A Sepsis Action Taken by Nursing No Action Required 09/26/21 22:07 09/26/21 22:15 Temperature 36.1 C L Temperature Source Temporal Artery Scan Pulse Rate Pulse Rate [Apical] 108 H 102 H Pulse Rhythm [Apical] Regular Regular Respiratory Rate 20 20 Respiratory Effort / Characteristics Non-Labored Non-Labored Respiratory Depth Normal Normal Blood Pressure Blood Pressure [Right Arm] 126/90 146/100 H Blood Pressure Mean Blood Pressure Mean [Right Arm] 102 115 Pulse Oximetry 93 96 Oxygen Delivery Method Oxymask Oxymask Oxygen Flow Rate 8 8 Sepsis Recent Fever Within 48 Hours Sepsis New/Unexplained Change in Mental Status Sepsis Action Taken by Nursing VITAL SIGNS - Vital signs and nursing notes were reviewed. Stable and afebrile. GENERAL - 31-year-old male appearing his stated age who is in no acute distress. Communicates well with provider and answers questions appropriately. SKIN - Without rashes. HEAD - NC/AT. EYES - Sclera anicteric. EARS - No deformities of external structures noted on gross examination bilaterally. LUNGS - Chest wall symmetric without accessory muscle use, intercostals retractions, or central cyanosis. Normal vesicular breath sounds CTA B/L. No wheezes, rales, or rhonchi appreciated. CARDIAC - RRR with S1/S2. No murmur, rubs, or gallops appreciated. ABDOMEN - Abdominal contour normal without pulsations or visible masses. BS normoactive all four quadrants. No tenderness, palpable masses, hepatosplenomegaly, or ascites noted. PSYCH - A&O, and cooperates fully with examiner. Pt is very pleasant and interacts well with examiner. Medical Decision Making Laboratory Data Result diagrams: 09/26/21 18:50 09/26/21 18:50 Lab Results 09/26/21 09/26/21 09/26/21 Range/Units 18:50 18:50 18:53 WBC 9.76 (4.8-10.8) K/uL RBC 5.13 (4.7-6.1) M/uL Hgb 16.2 (14.0-18.0) g/dL Hct 47.6 (42-52) % MCV 92.8 (80-100) fL MCH 31.6 (25-34) pg MCHC 34.0 (32-36) g/dL RDW Std Deviation 44.1 (36.4-46.3) fL RDW Coeff of [place] 12.9 (11.5-14.5) % Plt Count 338 (130-400) K/uL MPV 10.2 (7.4-10.4) fL Immature Gran % (Auto) 0.2 % Neut % (Auto) 60.2 % Lymph % (Auto) 30.8 % [place] % (Auto) 6.5 % Eos % (Auto) 1.7 % Baso % (Auto) 0.6 % Neut # (Auto) 5.87 (1.4-6.5) K/uL Lymph # (Auto) 3.01 (1.2-3.4) K/uL [place] # (Auto) 0.63 H (0.11-0.59) K/uL Eos # (Auto) 0.17 (0-0.5) K/uL Baso # (Auto) 0.06 (0-0.2) K/uL Immature Gran # (Auto) 0.02 (0.00-0.02) K/uL Sodium 143 (136-145) mmol/L Potassium 4.3 (3.5-5.1) mmol/L Chloride 109 H (98-107) mmol/L Carbon Dioxide 28 (21-32) mmol/L Anion Gap 5.0 (3-11) BUN 17 (7-18) mg/dl Creatinine 0.99 (0.6-1.4) mg/dl Est Cr Clr Drug Dosing 123.8 ml/min Est GFR ( Amer) 115.5 ml/min Est GFR (Non-Af Amer) 99.7 ml/min BUN/Creatinine Ratio 16.8 (10-20) Glucose 98 (70-99) mg/dl Calcium 9.7 (8.5-10.1) mg/dl Total Bilirubin 0.6 (0.2-1) mg/dl AST 15 (15-37) U/L ALT 30 (12-78) U/L Alkaline Phosphatase 92 (45-117) U/L Total Protein 8.3 H (6.4-8.2) gm/dl Albumin 4.4 (3.4-5.0) gm/dl Globulin 3.9 (2.5-4.0) gm/dl Albumin/Globulin Ratio 1.1 (0.9-2) Urine Color Urine Appearance (Clear) Urine pH (4.5-7.5) Ur Specific [place] (1.000-1.030) Urine Protein (Negative) Urine Glucose (UA) (Negative) Urine Ketones (Negative) Urine Blood (Negative) Urine Nitrite (Negative) Urine Bilirubin (Negative) Urine Urobilinogen (Negative) Ur Leukocyte Esterase (Negative) Urine WBC (Auto) (0-5) /hpf Urine RBC (Auto) (0-4) /hpf U Hyaline Cast (Auto) (0-5) /lpf U Epithel Cells (Auto) (0-5) /lpf Urine Bacteria (Auto) (Negative) COVID-19 Eval Order Covid19 at [facility] SARS-CoV-2 (PCR) (Negative) 09/26/21 09/26/21 Range/Units 18:53 20:19 WBC (4.8-10.8) K/uL RBC (4.7-6.1) M/uL Hgb (14.0-18.0) g/dL Hct (42-52) % MCV (80-100) fL MCH (25-34) pg MCHC (32-36) g/dL RDW Std Deviation (36.4-46.3) fL RDW Coeff of [place] (11.5-14.5) % Plt Count (130-400) K/uL MPV (7.4-10.4) fL Immature Gran % (Auto) % Neut % (Auto) % Lymph % (Auto) % [place] % (Auto) % Eos % (Auto) % Baso % (Auto) % Neut # (Auto) (1.4-6.5) K/uL Lymph # (Auto) (1.2-3.4) K/uL [place] # (Auto) (0.11-0.59) K/uL Eos # (Auto) (0-0.5) K/uL Baso # (Auto) (0-0.2) K/uL Immature Gran # (Auto) (0.00-0.02) K/uL Sodium (136-145) mmol/L Potassium (3.5-5.1) mmol/L Chloride (98-107) mmol/L Carbon Dioxide (21-32) mmol/L Anion Gap (3-11) BUN (7-18) mg/dl Creatinine (0.6-1.4) mg/dl Est Cr Clr Drug Dosing ml/min Est GFR ( Amer) ml/min Est GFR (Non-Af Amer) ml/min BUN/Creatinine Ratio (10-20) Glucose (70-99) mg/dl Calcium (8.5-10.1) mg/dl Total Bilirubin (0.2-1) mg/dl AST (15-37) U/L ALT (12-78) U/L Alkaline Phosphatase (45-117) U/L Total Protein (6.4-8.2) gm/dl Albumin (3.4-5.0) gm/dl Globulin (2.5-4.0) gm/dl Albumin/Globulin Ratio (0.9-2) Urine Color Yellow Urine Appearance Clear (Clear) Urine pH 6.5 (4.5-7.5) Ur Specific [place] 1.018 (1.000-1.030) Urine Protein Negative (Negative) Urine Glucose (UA) Negative (Negative) Urine Ketones Negative (Negative) Urine Blood Negative (Negative) Urine Nitrite Negative (Negative) Urine Bilirubin Negative (Negative) Urine Urobilinogen Negative (Negative) Ur Leukocyte Esterase Trace H (Negative) Urine WBC (Auto) 10-30 H (0-5) /hpf Urine RBC (Auto) 0-4 (0-4) /hpf U Hyaline Cast (Auto) 1-5 (0-5) /lpf U Epithel Cells (Auto) 0-5 (0-5) /lpf Urine Bacteria (Auto) 2+ H (Negative) COVID-19 Eval Order SARS-CoV-2 (PCR) NEGATIVE (Negative) Imaging Data Radiologist's Impression: Chest X-Ray 09/26/21 16:29 XR chest 1V portable CLINICAL HISTORY: FB ingestion TECHNIQUE: Single frontal radiograph of the chest was obtained. Comparison: None available at the time of this dictation. FINDINGS: No lines and tubes are seen. The cardiomediastinal silhouette is normal. The lungs are clear. No evidence of pleural effusion or pneumothorax. IMPRESSION: No radiodense foreign body is seen in the chest. ACT 112: Negative or not required by law. Electronically signed by: Mark Sandoval M.D. 09/26/2021 5:27 PM KUB X-Ray 09/26/21 16:29 XR KUB/Abdomen 1 view CLINICAL HISTORY: FB ingestion TECHNIQUE: 1 view of the abdomen was obtained. Comparison: None available at the time of this dictation. FINDINGS: Multiple linear metallic densities are seen projecting over the gastric contour. The osseous structures are grossly unremarkable. The bowel gas pattern is nonobstructive. A moderate amount of stool is noted within the large bowel. IMPRESSION: Nonobstructive bowel gas pattern. ACT 112: Negative or not required by law. Electronically signed by: Mark Sandoval M.D. 09/26/2021 5:27 PM MDM Narrative Patient was seen and evaluated as above in room C 12. Review was performed of nursing notes and vital signs. I did review pertinent previous visits and patient history. After obtaining a thorough history and physical examination the above work up was performed. Patient presents to us today status post foreign body ingestion. When questioned why he did this the patient notes that he "lost will to live". He is frustrated with his care for his MS at his facility. His vital signs are stable. He is nontoxic on exam. Benign abdominal exam. Patient was seen during a period of high volume and high acuity during the COV ID-19 pandemic. Patient already had x-rays performed that did reveal foreign body. I immediately reached out to the on-call GI specialist, Dr. Calvin. Please refer to his documentation as he will be taking the patient to the endoscopy suite for extraction of the foreign bodies. Options of care were discussed with the patient. IV access was established. Labs were drawn. No leukocytosis or concerning anemia. No emergent metabolic disturbance. Urinalysis reveals potential for UTI. Covid testing negative. Patient will be admitted to the medicine service overnight. Please refer to further documentation regarding the patient's stay. GCS: 15 In the evaluation and treatment of this patient the following differential diagnoses were entertained: Perforation, foreign body, suicide attempt, obstruction, among others. Impression & Plan Foreign body, swallowed Discharge Plan Visit Data Chief Complaint: Foreign Body Stated Complaint: SWALLOWED BATTERIES & ECIG ED Provider: Jody Matthews ED Midlevel Provider: Tobin Arciniega Discharge Problem: Foreign body, swallowed Patient Disposition: Admitted As Inpatient Condition: Good Discharge Instructions Interventions: ED Discharge Assessment Last Done: 09/26/21 20:30
[2021-09-26 19:16] LABS: Albumin Level 4.4 gm/dl (3.4-5.0); BUN Creatinine Ratio 16.8 (10-20); Calcium 9.7 mg/dl (8.5-10.1); Creatinine Clr Calc Pharmacy 123.8 ml/min; Est GFR (African American) 115.5 ml/min; Est GFR (Non-African American) 99.7 ml/min; Potassium 4.3 mmol/L (3.5-5.1)
[2021-09-26 19:19] LABS: Albumin Globulin Ratio 1.1 (0.9-2); Bilirubin,Total 0.6 mg/dl (0.2-1); Globulin 3.9 gm/dl (2.5-4.0); Total Protein 8.3 gm/dl (6.4-8.2)
[2021-09-26 19:24] LABS: Basophils # (auto) 0.06 K/uL (0-0.2); Basophils % (auto) 0.6 %; Eosinophils # (auto) 0.17 K/uL (0-0.5); Eosinophils % (auto) 1.7 %; Hematocrit (blood only) 47.6 % (42-52); Hemoglobin 16.2 g/dL (14.0-18.0); Immature Granulocytes # (auto) 0.02 K/uL (0.00-0.02); Immature Granulocytes % (auto) 0.2 %; Lymphocytes # (auto) 3.01 K/uL (1.2-3.4); Lymphocytes % (auto) 30.8 %; Mean Corpuscular Hemoglobin 31.6 pg (25-34); Mean Corpuscular Volume 92.8 fL (80-100); Mean Platelet Volume 10.2 fL (7.4-10.4); Monocytes # (auto) 0.63 K/uL (0.11-0.59); Monocytes % (auto) 6.5 %; Neutrophils # (auto) 5.87 K/uL (1.4-6.5); Neutrophils % (auto) 60.2 %; Platelet Count 338 K/uL (130-400); RDW Coefficient of Variation 12.9 % (11.5-14.5); RDW Standard Deviation 44.1 fL (36.4-46.3); Red Blood Count 5.13 M/uL (4.7-6.1); White Blood Count 9.76 K/uL (4.8-10.8)
--- NOTE | 2021-09-26 19:46 | History & Physical Report ---
Date of Service September 26, 2021 Assessment & Plan (1) Foreign body, swallowed: Plan: 31 y/o male from [facility] w/ PMHx of multiple sclerosis and prior suicide attempts who presents w/ ingestion of 13 large e-cigarette batteries. He is stable and asymptomatic other than mild abd pain. - GI consulted - upper endoscopy to remove batteries. f/u results - strict NPO, no PO meds - ordered ecg - follow AM labs. check blood gas if develops resp distress - lower suspicion of passage below stomach given battery size visualized. defer xr pelvis - lower suspicion of esophageal involvement given location of batteries. - monitor clinically. telemetry (2) Suicide attempt: Plan: - denies current SI - defer psych consult (3) Multiple sclerosis: Plan: - continue home regimen, daily glatiramer injections - hold home PO gabapentin and home PRN baclofen while strict NPO (4) Hepatitis B: Plan: - continue home regimen tenofovir when able. per patient, hep B in remission (5) Intermittent explosive disorder: Plan: - continue home regimen (qhs Zyprexa and daily fluoxetine) when able Plan: FEN/GI: Strict NPO, no PO meds. No IV fluids. code: full ppx: SCDs only dispo: med/surg tele History of Present Illness Chief Complaint: ingestion of batteries Primary Care Provider: [facility] Vinelandraisa Casanova is a 31 y/o male w/ PMHx of of hep B, MS, and intermittent explosive disorder who presents from [facility] after swallowing 13 e-cigarette batteries at 12:45PM today. Patient states he has been in despute w/ the medical department to treat his muscle spasms from MS. He states he was frustrated at his medical care. No current thoughts of hurting self. He had mild-mod abd 1 hour after, since lessened. Denies n/v. No hematemesis. No fever/chills, cp, sob. He swallowed the batteries one at a time. Heimlich maneuver was not attempted. He pressed button and told staff he swallowed the batteries who then called for EMS. He drank half a cup of wate in the interim. Patient states this is his 4th time of trying to take life, has swallowed and hung self in past. He took his AM meds including Neurontin, baclofen, prozac, tenofovir, Copaxone today. He has baseline RLE wkness 2/2 MS. He uses wheelchair for assistance at baseline x several years. 2 correction guards are at bedside. Per guards, no confusion or behavioral changes. Patient apes nicotine occasionally. Former tobacco user, quit cigarettes 2 yrs ago. Distant hx of IVDU. ED course: KUB showing the opaque batteries. "Multiple linear metallic densities are seen projecting over the gastric contour. " wbc 9.76. Not anemic. Nilam ctrolytes wnl. Awaiting GI upper endoscopy. Allergies Allergy/AdvReac Type Severity Reaction Status Date / Time No Known Allergies Allergy Verified 09/26/21 18:48 Home Medications Medication Instructions Recorded Confirmed Type baclofen 20 mg tablet 20 mg PO BID PRN tab 08/01/19 09/26/21 History gabapentin 600 mg tablet 1,800 mg PO BID 02/12/20 09/26/21 History tenofovir alafenamide 25 mg tablet 25 mg PO QAM 02/12/20 09/26/21 History (Vemlidy) olanzapine 15 mg tablet (Zyprexa) 15 mg PO HS 09/01/21 09/26/21 History fluoxetine 20 mg capsule 20 mg PO DAILY 09/26/21 09/26/21 History glatiramer 20 mg/mL subcutaneous 20 mg SUBCUT DAILY 09/26/21 09/26/21 History syringe (Glatopa) Past Med/Surg History Medical History Chronic pain Hepatitis B Intermittent explosive disorder Multiple sclerosis Muscle spasticity Surgical History No history of previous surgery Family History Father Diabetes Thyroid disease Social History Smoking Status: Current every day smoker Tobacco Type: E-cigarettes / Vaping Second Hand Exposure: Yes; Do You Dip or Chew Tobacco: No; Tobacco Cessation Education Requested by Patient: No Hx Alcohol Use: No Hx Substance Use: Yes Last Used Substance: Unknown Preferred Language: [place]orese Communication Ability: Effective Tightener Required: No Beliefs That Will Affect Care: None Current Living Situation: Other Current Living Situation Comment: [facility] Feels Safe at Home: Yes Safety Concerns: Feels Safe At This Time Assistive Devices: Wheelchair Review of Systems Review of Systems: All systems reviewed & are unremarkable except as noted in HPI & below Constitutional: Denies fever, chills, weight change Eyes: Denies blurry vision, vision changes ENT: Denies sore throat, sinus pain Cardiovascular: Denies chest pain, palpitations Respiratory: Denies shortness of breath, cough Gastrointestinal: Denies nausea, vomiting, constipation, diarrhea. Mild mid upper abd discomfort, pressure sensation/cramp, no radiation. Last BM yesterday. Genitourinary: Denies urinary symptoms including dysuria Musculoskeletal: Denies weakness, muscle aches/pain, joint aches/pain Neurological: Denies headache, numbness, tingling, focal weakness Physical Exam Physical Exam: General: A&Ox4. NAD. Cooperative. Conversational. Patient is handcuffed to bed. HEENT: Atraumatic, normocephalic. EOMI. PERRL. No LAD. Pulm: CTAB. -wheezes, -rales, -rhonchi. No respiratory distress. Cardiac: RRR, -mrg. Radial pulses intact and symmetrical. No LE edema. Abdominal: Nondistended, soft. Mild ttp at area above umbilicus. No rebound or guarding. No epigastric TTP. Msk: Moving all extremities. Neuro: CN II-XII intact. Strength and sensations of extremities intact. Per my exam, bilat LE strength 5+/5. Integ: Full sleeve arm tattoos. No erythema. Skin is warm, dry, and intact. Psych: Calm affect. No current thoughts of harm. He states he would like to be treated so that he can eat again. Results & Data Results & Data ([facility]) Vital Signs (Past 12 Hours) Vital Signs Temp Pulse Resp BP Pulse Ox 09/26/21 14:45 36.6 C 77 20 128/73 98 Laboratory Results 09/26/21 18:50 09/26/21 18:50 Cardiac Enzymes 09/26/21 Range/Units 18:50 AST 15 (15-37) U/L CBC 09/26/21 Range/Units 18:50 WBC 9.76 (4.8-10.8) K/uL RBC 5.13 (4.7-6.1) M/uL Hgb 16.2 (14.0-18.0) g/dL Hct 47.6 (42-52) % Plt Count 338 (130-400) K/uL Neut # (Auto) 5.87 (1.4-6.5) K/uL Lymph # (Auto) 3.01 (1.2-3.4) K/uL [place] # (Auto) 0.63 H (0.11-0.59) K/uL Eos # (Auto) 0.17 (0-0.5) K/uL Baso # (Auto) 0.06 (0-0.2) K/uL Comprehensive Metabolic Panel 09/26/21 Range/Units 18:50 Sodium 143 (136-145) mmol/L Potassium 4.3 (3.5-5.1) mmol/L Chloride 109 H (98-107) mmol/L Carbon Dioxide 28 (21-32) mmol/L BUN 17 (7-18) mg/dl Creatinine 0.99 (0.6-1.4) mg/dl Glucose 98 (70-99) mg/dl Calcium 9.7 (8.5-10.1) mg/dl AST 15 (15-37) U/L ALT 30 (12-78) U/L Alkaline Phosphatase 92 (45-117) U/L Total Protein 8.3 H (6.4-8.2) gm/dl Albumin 4.4 (3.4-5.0) gm/dl Intake and Output 09/26/21 09/26/21 09/26/21 06:59 14:59 22:59 Other: Weight 93.2 kg Weight Measurement Method Stated by Patient Patient Weight 09/27/21 06:59 Weight 93.2 kg Diagnostic Findings Chest X-Ray 09/26/21 16:29 XR chest 1V portable CLINICAL HISTORY: FB ingestion TECHNIQUE: Single frontal radiograph of the chest was obtained. Comparison: None available at the time of this dictation. FINDINGS: No lines and tubes are seen. The cardiomediastinal silhouette is normal. The lungs are clear. No evidence of pleural effusion or pneumothorax. IMPRESSION: No radiodense foreign body is seen in the chest. ACT 112: Negative or not required by law. Electronically signed by: Mark Sandoval M.D. 09/26/2021 5:27 PM KUB X-Ray 09/26/21 16:29 XR KUB/Abdomen 1 view CLINICAL HISTORY: FB ingestion TECHNIQUE: 1 view of the abdomen was obtained. Comparison: None available at the time of this dictation. FINDINGS: Multiple linear metallic densities are seen projecting over the gastric contour. The osseous structures are grossly unremarkable. The bowel gas pattern is nonobstructive. A moderate amount of stool is noted within the large bowel. IMPRESSION: Nonobstructive bowel gas pattern. ACT 112: Negative or not required by law. Electronically signed by: Mark Sandoval M.D. 09/26/2021 5:27 PM Code Status & VTE Plan Code Status full VTE Prophylaxis Plan VTE Prophylaxis will be ordered: Yes Reason for no VTE drug order: Treatment not indicated Supervising Physician Co-Signing Physician Notes Attending addendum: I have physically seen this patient, have supervised the medical residents activities, and agree with the H&P unless as otherwise noted. Assessment and Plan: Foreign body- Patient swallowed 13 large e-cigarette batteries, noted on KUB To undergo EGD this evening for removal Famotidine 20 mg IV every 12 hours N.p.o. overnight Zofran 4 mg IV every 6 hours as needed Multiple sclerosis- Daily glatiramer injections Hold oral medications, gabapentin and baclofen while n.p.o. Should be able to resume in the morning Remaining orders and notations as noted Resident Activity Tracking Resident Involvement: Resident Care Provided Care Provided: Adult Hospital Medicine (1) Foreign body, swallowed Encounter type: initial encounter Qualified Code(s): T18.9XXA - Foreign body of alimentary tract, part unspecified, initial encounter
--- NOTE | 2021-09-26 20:13 | Gastrointestinal Consultation ---
Date of Consultation September 26, 2021 Assessment & Plan (1) Foreign body, swallowed: foreign body ingestion ecig batteries x 13 Recs: NPO EGD now to remove foreign bodies admit to medicine psychiatry consultation in the am as he has repeatedly attempted suicide supportive care Thank you for allowing me to participate in the care of this patient History of Present Illness History of Present Illness 31 yo male with hx Hep B, MS here after foreign body ingestion. He notes he swallowed 13 e-cigarette batteries at 12:45 pm today. He has been frusturated with his care for his MS. He has swallowed foreign bodies before, last time here in March 2021 when he had ingested razor blades and had an EGD at the time. He has hung himself in the past. Imaging shows foreign bodies in the stomach. labs reviewed. VSS. Allergies Allergy/AdvReac Type Severity Reaction Status Date / Time No Known Allergies Allergy Verified 09/26/21 18:48 Home Medications Medication Instructions Recorded Confirmed Type baclofen 20 mg tablet 20 mg PO BID PRN tab 08/01/19 09/26/21 History gabapentin 600 mg tablet 1,800 mg PO BID 02/12/20 09/26/21 History tenofovir alafenamide 25 mg tablet 25 mg PO QAM 02/12/20 09/26/21 History (Vemlidy) olanzapine 15 mg tablet (Zyprexa) 15 mg PO HS 09/01/21 09/26/21 History fluoxetine 20 mg capsule 20 mg PO DAILY 09/26/21 09/26/21 History glatiramer 20 mg/mL subcutaneous 20 mg SUBCUT DAILY 09/26/21 09/26/21 History syringe (Glatopa) Patient History Medical History Chronic pain Hepatitis B Intermittent explosive disorder Multiple sclerosis Muscle spasticity Surgical History No history of previous surgery Family History Father Diabetes Thyroid disease Social History Smoking Status: Current every day smoker Tobacco Type: E-cigarettes / Vaping Hx Alcohol Use: No Hx Substance Use: No Preferred Language: Irish Communication Ability: Effective Employee Communications Coordinator Required: No Beliefs That Will Affect Care: None Current Living Situation: Other Current Living Situation Comment: [facility] Feels Safe at Home: Yes Assistive Devices: None Review of Systems Constitutional: no fever, no chills and no weight loss Eyes: as per Subjective / HPI Ear, Nose, Mouth, Throat: as per Subjective / HPI Respiratory: no dyspnea and no dyspnea on exertion Cardiovascular: no chest pain and no palpitations Gastrointestinal: as per Subjective / HPI Musculoskeletal: no joint pain and no swelling Integumentary: no rash and no lesions Neurologic: no numbness and no paresthesia Psychiatric: no depression and no anxiety Endocrine: no fatigue Hematologic / Lymphatic: no easy bleeding and no easy bruising Physical Exam Constitutional: WD/WN, vitals as above Eyes: EOM intact bilaterally Neck: normal visual inspection Respiratory: normal respiratory effort, lungs clear to auscultation Cardiovascular: RRR, no murmur, no edema Gastrointestinal (Abdomen): Inspection/Auscultation: abdomen normal to inspection; abdomen not distended Percussion/Palpation: abdomen soft; abdomen nontender and no hepatosplenomegaly Musculoskeletal: Extremities: no cyanosis Gait: normal gait Skin: no rashes, warm and dry Neurologic: moves all extremities Psychiatric: A+Ox3, euthymic affect Results & Data ([facility]) Vital Signs (Past 12 Hours) Vital Signs Temp Pulse Resp BP BP Pulse Ox 09/26/21 18:40 36.6 C 18 117/77 99 09/26/21 14:45 36.6 C 77 20 128/73 98 PG Care Time/CCT Total # of Minutes Spent Total Time Spent with Patient: Total time spent is greater than 50% in coordination of care (as documented) at patient's floor/unit and/or counseling patient: Coding Level of Care Code 29751 Inpt Consult Level 4 Diagnoses Foreign body, swallowed T18.9XXA Encounter type: initial encounter (1) Foreign body, swallowed Encounter type: initial encounter Qualified Code(s): T18.9XXA - Foreign body of alimentary tract, part unspecified, initial encounter
[2021-09-26] MEDS ORDERED: fentaNYL citrate 100 MCG/2 ML VIAL ONE (20:42)
[2021-09-26 20:53] LABS: Appearance Urine Clear (Clear); Bacteria Urine Automated 2+ (Negative); Bilirubin Urine Negative (Negative); Blood Urine Negative (Negative); Color Urine Yellow; Epithelial Cell Urine Auto 0-5 /lpf (0-5); Glucose Urine UA Negative (Negative); Ketones Urine Negative (Negative); Leukocyte Esterase Urine Trace (Negative); Nitrite Urine Negative (Negative); Protein Urine Negative (Negative); RBC Urine Automated 0-4 /hpf (0-4); Specific Gravity Urine 1.018 (1.000-1.030); Urobilinogen Urine Negative (Negative); pH Urine 6.5 (4.5-7.5)
[2021-09-26] MEDS ORDERED: PROPOFOL IV EMULSION 10 MG/ML 20 ML VIAL IV ONE (21:56)
[2021-09-26] MEDS ORDERED: LIDOCAINE 2% 2 ML VIAL/AMP(20MG/ML) INFIL ONE (21:56)
[2021-09-26] MEDS ORDERED: SUCCINYLCHOLINE CHLORIDE 20 MG/ML 10 ML VIAL IV ONE (21:56)
[2021-09-26] MEDS ORDERED: ONDANSETRON INJ 2 MG/ML 2 ML VIAL ONE (21:56)
--- NOTE | 2021-09-26 22:03 | Procedure Note ---
Procedure Note Date of Service September 26, 2021 Note GI procedure note/post op note EGD findings: 15 ecigarette batteries with wrappers found in the stomach in the fundus, removed via snare successfully. Otherwise unremarkable exam. small food remnants suctioned out from stomach Recs: NPO tonight, advance diet as tolerated in the morning admit to medicine psych consult in the morning supportive care consider neurology consult for his MS and spasms rest as per primary team Compa Calvin MD Gastroenterology Coding
--- NOTE | 2021-09-26 22:07 | GI REPORT ---
Patient Name: Philip Casanova Procedure Date: 09/26/2021 8:13 PM Date of : 1990 Admit Type: Emergency Department Age: 31 Gender: Male Attending MD: Compa Calvin MD Procedure: Upper GI endoscopy Providers: Compa Calvin MD Referring MD: Sin Selby Indications: Foreign body in the stomach Medicines: Monitored Anesthesia Care Complications: No immediate complications. Estimated blood loss: None. Estimated Blood Loss: Estimated blood loss: none. Procedure: Pre-Anesthesia Assessment: - Prior Anticoagulants: The patient has taken no previous anticoagulant or antiplatelet agents. - ASA Grade Assessment: II - A patient with mild systemic disease. After obtaining informed consent, the endoscope was passed under direct vision. Throughout the procedure, the patient's blood pressure, pulse, and oxygen saturations were monitored continuously. The Endoscope was introduced through the mouth, and advanced to the second part of duodenum. The upper GI endoscopy was accomplished without difficulty. The patient tolerated the procedure well. Findings: The examined esophagus was normal. 15 ecigarette batteries were found in the gastric fundus. Removal was accomplished with a snare. Estimated blood loss: none. A small amount of food (residue) was found in the gastric fundus. Removal of food was accomplished using cap suction. Estimated blood loss: none. The duodenal bulb and second portion of the duodenum were normal. Impression: - Normal esophagus. - A battery was found in the stomach. Removal was successful. - A small amount of food (residue) in the stomach. Removal was successful. - Normal duodenal bulb and second portion of the duodenum. Recommendation: - [facility] to [facility] for [facility] care. NPO tonight, advance diet as tolerated in the morning admit to medicine psych consult in the morning supportive care consider neurology consult for his MS and spasms Compa Calvin MD 09/26/2021 10:06:22 PM This report has been signed electronically. Note Initiated On: 09/26/2021 8:13 PM Number of Addenda: 0 I attest to the content of the Intraoperative Record and orders documented therein, exceptions below {[id number]}
[2021-09-26] MEDS ORDERED: ONDANSETRON INJ 2 MG/ML 2 ML VIAL IV PRN (22:13)
[2021-09-26] MEDS ORDERED: ePHEDrine sulfate 50 MG/ML AMP IV PRN (22:13)
[2021-09-26] MEDS ORDERED: fentaNYL citrate 100 MCG/2 ML VIAL IV PRN (22:13)
[2021-09-26] MEDS ORDERED: ATROPINE SULFATE 0.1 MG/ML 10ML SYR IV PRN (22:13)
--- NOTE | 2021-09-26 22:13 | Anesthesiology Progress Note ---
Date of Service September 26, 2021 Anesthesia Post Procedure Vital Signs Vital Signs: Temp Pulse Resp BP BP Pulse Ox 09/26/21 20:30 36.8 C 74 17 137/74 98 09/26/21 18:40 36.6 C 18 117/77 99 09/26/21 14:45 36.6 C 77 20 128/73 98 Transfer of Care Handoff Completed per policy Notes Mental Status: alert / awake / arousable Patient Amnestic to Procedure: Yes Nausea / Vomiting: adequately controlled Pain: adequately controlled Airway Patency, RR, SpO2: stable & adequate BP & HR: stable & adequate Hydration State: stable & adequate Anesthetic Complications: no major complications apparent
[2021-09-27] MEDS: OLANZapine ZYDIS 5 MG ORALLY DIS. TAB PO SCH ×2 (01:15→20:22)
[2021-09-27 08:27] LABS: Basophils # (auto) 0.05 K/uL (0-0.2); Basophils % (auto) 0.6 %; Eosinophils # (auto) 0.12 K/uL (0-0.5); Eosinophils % (auto) 1.4 %; Hematocrit (blood only) 41.4 % (42-52); Hemoglobin 14.1 g/dL (14.0-18.0); Immature Granulocytes # (auto) 0.01 K/uL (0.00-0.02); Immature Granulocytes % (auto) 0.1 %; Lymphocytes # (auto) 2.42 K/uL (1.2-3.4); Lymphocytes % (auto) 28.2 %; Mean Corpuscular Hemoglobin 31.4 pg (25-34); Mean Corpuscular Hgb Conc 34.1 g/dL (32-36); Mean Corpuscular Volume 92.2 fL (80-100); Mean Platelet Volume 9.8 fL (7.4-10.4); Monocytes # (auto) 0.78 K/uL (0.11-0.59); Monocytes % (auto) 9.1 %; Neutrophils % (auto) 60.6 %; Platelet Count 287 K/uL (130-400); RDW Standard Deviation 44.1 fL (36.4-46.3); Red Blood Count 4.49 M/uL (4.7-6.1); White Blood Count 8.58 K/uL (4.8-10.8)
[2021-09-27 08:56] LABS: Albumin Level 3.5 gm/dl (3.4-5.0); BUN Creatinine Ratio 22.4 (10-20); Calcium 9.1 mg/dl (8.5-10.1); Creatinine Clr Calc Pharmacy 124.7 ml/min; Est GFR (African American) 115.5 ml/min; Est GFR (Non-African American) 99.7 ml/min; Potassium 3.9 mmol/L (3.5-5.1)
[2021-09-27 09:06] LABS: Albumin Globulin Ratio 1.1 (0.9-2); Bilirubin,Total 0.7 mg/dl (0.2-1); Globulin 3.1 gm/dl (2.5-4.0); Total Protein 6.6 gm/dl (6.4-8.2)
--- NOTE | 2021-09-27 11:15 | Electrocardiogram Report ---
Test Reason : Blood Pressure : / mmHG Vent. Rate : 075 BPM Atrial Rate : 075 BPM P-R Int : 156 ms QRS Dur : 106 ms QT Int : 388 ms P-R-T Axes : 067 021 054 degrees QTc Int : 433 ms Normal sinus rhythm Normal ECG When compared with ECG of 01-SEP-2021 15:46, Criteria for Septal infarct are no longer Present Confirmed by Iggy Mullen ([id number]) on 09/27/2021 11:15:27 AM Referred By: Sin [facility] Confirmed By:Art Mullen
--- NOTE | 2021-09-27 12:48 | Psychiatric Consultation ---
Date of Consultation September 27, 2021 Impression / Recommendations Impression 31 yo man currently at [facility] with a history of MS and prior intentional ingestions who was admitted medically after ingesting multiple batteries. Psychiatry was consulted for risk assessment and management recommendations. Diagnostically consistent with unspecified depression, likely secondary to medical condition of MS versus adjustment disorder with depressed mood from recent MS flare. In terms of risk of harm to self he is deemed to be at low acute risk given denial of SI, strong deterrents and access to treatment though [facility]; moderate risk chronically given that his pattern of ingesting foreign objects impulsively as a means of getting his needs met or when frustrated is likely to persist unless he can work to develop healthier coping mechanisms, encouragingly he always seeks help following these ingestions. Reduction of chronic risk can be best addressed through ongoing support and access to therapeutic services offered through [facility]. (1) Foreign body, swallowed: Currently guards continuing to provide 1:1 at bedside and can return to [facility] on suicide precautions pending further evaluation there. Please reconsult if acute management issue. Risk Factors Assessment Do You Have Access To A Gun?: No Hopelessness: No Psych History Identifying Data 31 yo man currently at [facility] with a history of MS and prior intentional ingestions who was admitted medically after ingesting multiple batteries. Psychiatry was consulted for risk assessment and management recommendations. Chief Complaint "I'm not suicidal now". History of Present Illness Patient is a 31 yo man currently incarcerated at [facility] with a history of MS and suicidal gestures via ingestion. He notes he was frustrated that he is not being provided with medication for his MS symptoms of muscle spasms and due to this decided to swallow multiple batteries due to SI which he attributes to frustration and being "sick of suffering from MS pain". Quickly after ingesting them he notified [facility] staff as he desired to live and notes that he thought about what his would do to his three daughters. Currently he endorses euthymic mood and continues to deny SI stating strong deterrent and reason to live of his three young daughters and wanting to have a future/be alive. Discussed what led to his ingestion and past ingestion and other ways that he could vocalize his frustrations and utilize advocates-including his psychiatrist and neurologist whom he feels are both helpful and supportive if he develops SI again in the future. He takes zyprexa and fluoxetine and finds both of these helpful for his mood and without any side effects. Past Psychiatric History Previous Psych History: prior ingestions Outpatient Services: sees psychiatrist through [facility] Do You Have Access To A Gun?: No History of Previous Suicide Attempt: Yes (prior ingestions including swallowing pieces from his wheelchair) Allergies Allergy/AdvReac Type Severity Reaction Status Date / Time No Known Allergies Allergy Verified 09/26/21 18:48 Home Medications Medication Instructions Recorded Confirmed Type baclofen 20 mg tablet 20 mg PO BID PRN tab 08/01/19 09/26/21 History gabapentin 600 mg tablet 1,800 mg PO BID 02/12/20 09/26/21 History tenofovir alafenamide 25 mg tablet 25 mg PO QAM 02/12/20 09/26/21 History (Vemlidy) olanzapine 15 mg tablet (Zyprexa) 15 mg PO HS 09/01/21 09/26/21 History fluoxetine 20 mg capsule 20 mg PO DAILY 09/26/21 09/26/21 History glatiramer 20 mg/mL subcutaneous 20 mg SUBCUT DAILY 09/26/21 09/26/21 History syringe (Glatopa) Substance Abuse History hx of IVDU Personal History Living Arrangements: incarcerated at [facility] Number Of Children: 3 Beliefs That Will Affect Care: None Patient History Medical History Chronic pain Hepatitis B Intermittent explosive disorder Multiple sclerosis Muscle spasticity Surgical History No history of previous surgery Family History Father Diabetes Thyroid disease Social History Smoking Status: Current every day smoker Tobacco Type: E-cigarettes / Vaping Second Hand Exposure: Yes; Do You Dip or Chew Tobacco: No; Tobacco Cessation Education Requested by Patient: No Hx Alcohol Use: No Hx Substance Use: Yes Last Used Substance: Unknown Preferred Language: Mohawk Communication Ability: Effective Social Media Senior Associate Required: No Beliefs That Will Affect Care: None Current Living Situation: Other Current Living Situation Comment: [facility] Feels Safe at Home: Yes Safety Concerns: Feels Safe At This Time Assistive Devices: Wheelchair Physical Exam Psychiatric: Orientation: alert and oriented x 3 Apperance: appropriately dressed and appropriately groomed Eye Contact: good eye contact Motor Behavior: no abnormal motor movements Speech: normal rate/rhythm/volume of speech Affect: + irritable affect Mood: no depressed mood and no anxious mood Thought Process: goal directed thought process Thought Content: reality based without delusions Suicidal Thoughts: denies suicidal thoughts Homicidal Thoughts: denies homicidal thoughts Hallucinations: no auditory hallucinations and no visual hallucinations Cognition: recent memory grossly intact, remote memory grossly intact, attention grossly intact and language grossly intact Estimated Intelligence: consistent with education level Insight: + limited insight Judgement: + limited judgement Vital Signs (Past 24 Hours): Last Vital Signs Temp 36.7 C 09/27/21 11:53 Pulse 90 09/27/21 11:53 Resp 22 09/27/21 11:53 BP 102/66 09/27/21 11:53 Pulse Ox 96 09/27/21 11:53 Review of Systems All systems reviewed & are unremarkable except as noted in HPI & below Results & Data ([facility]) Medications Administered Miscellaneous (Glatiramer [Glatopa]: Order Awaiting Action) 1 ea N/A QS SUSAN Stop: 10/27/21 07:59 Last Admin: 09/27/21 09:15 Dose: Not Given Documented by: [id number] Olanzapine (Olanzapine Zydis 5 Mg Orally Dis. Tab) 15 mg PO HS SUSAN Stop: 10/27/21 00:09 Last Admin: 09/27/21 01:15 Dose: 15 mg Documented by: [id number] Coding Level of Care Code 90808 Inpt Consult Level 2 Diagnoses Foreign body, swallowed T18.9XXA Time Spent (min) 30
[2021-09-27] MEDS: GABAPENTIN 600 MG TAB PO SCH (18:13)
--- NOTE | 2021-09-27 20:23 | Billing Data ---
Date of Service September 27, 2021 Coding Level of Care Code 30605 Initial Inpt Care Lvl 2
[2021-09-27] MEDS ORDERED: OLANZapine 5 MG TABLET PO SCH (21:00)
[2021-09-27] MEDS: BACLOFEN 20 MG TAB PO PRN (21:38)
[2021-09-28] MEDS: GABAPENTIN 600 MG TAB PO SCH (06:14)
[2021-09-28 07:46] VITALS: TEMP 97.9; O2SAT 97
[2021-09-28] MEDS: BACLOFEN 20 MG TAB PO PRN (08:26)
[2021-09-28] MEDS ORDERED: FLUoxetine HCL 20 MG CAP PO SCH (09:00)
[2021-09-28] MEDS ORDERED: TENOFOVIR ALAFENAMIDE 25 MG PO SCH (09:00)
--- NOTE | 2021-09-28 09:21 | XRay Report ---
XR KUB/Abdomen 1 view CLINICAL HISTORY: battery ingestion, follow up after EGD TECHNIQUE: 1 view of the abdomen was obtained. Comparison: Comparison is made to abdomen radiographs 09/26/2021 FINDINGS: Multiple metallic fragments are seen within the abdomen. The previously noted linear metallic densiti es are no longer seen. The osseous structures are grossly unremarkable. The bowel gas pattern is nono bstructive. A moderate amount of stool is noted within the large bowel. IMPRESSION: Interval elimination of previously noted metallic densities compatible with ingested batteries. ACT 112: Negative or not required by law. Electronically signed by: Mark Sandoval M.D. 09/28/2021 9:20 AM
--- NOTE | 2021-09-28 09:52 | Hospitalist Progress Note ---
Date of Service September 27, 2021 Assessment & Plan (1) Foreign body, swallowed: Plan: 31 y/o male from [facility] w/ PMHx of multiple sclerosis and prior suicide attempts who presents w/ ingestion of 13 large e-cigarette batteries. He is stable and asymptomatic other than mild abd pain. - GI consulted - EGD with successful removal of batteries check KUB tomorrow morning, discharge advance diet today move to medical floor (2) Suicide attempt: Plan: - denies current SI - appreciate psych consult, no suicidal ideation, swallowed batteries for medical attention (3) Multiple sclerosis: Plan: - continue home regimen, daily glatiramer injections - resume gabapentin and baclofen he is frustrated due to [facility] policy that there are no noon medications, gets bad in afternoons follow up with neurology in [facility] system, no need for inpatient neurology consult (4) Hepatitis B: Plan: - continue home regimen tenofovir when able. per patient, hep B in remission (5) Intermittent explosive disorder: Plan: - continue home regimen (qhs Zyprexa and daily fluoxetine) when able Plan: FEN/GI: advance diet code: full ppx: SCDs only dispo: med/surg Admission and Anticipated Discharge Date Admission Date: September 26, 2021 Subjective patient doing well, tolerating diet asking for his MS meds to be resumed discussed checking KUB tomorrow, discharge likely appreciate psychiatric consult, he is not suicidal, just swallowed batteries to get medical attention Review of Systems Review of Systems: All systems reviewed & are unremarkable except as noted in Subjective Neurologic: + gait abnormality, + unsteadiness and + abnormal movements (lower extremity spasms) Physical Exam Physical Exam: General: well developed, well nourished, no acute distress, comfortable Neck: supple, trachea midline, normal thyroid Lungs: clear to auscultation bilaterally, normal respiratory effort, no accessory muscle use, no distress Heart: regular S1 and S2, no murmur, peripheral pulses normal, capillary refill normal, no edema Abdomen: soft, NT, ND, + BS, no hepatomegaly, normal to percussion Extremities: normal in appearance, no cyanosis, no petechiae, strength is 5/5 bilaterally Neuro: awake, cooperative, moves all extremities, no focal motor deficits, CN II-XII intact, sensation in extremities intact, normal speech Skin: warm, dry, no rash, normal turgor Psych: Awake, alert oriented x 3, euthymic affect Results & Data Results & Data ([facility]) Vital Signs (Past 12 Hours) Vital Signs Temp Pulse Resp BP Pulse Ox 09/28/21 07:44 36.6 C 63 16 98/61 L 97 09/27/21 23:41 37.4 C 73 14 96/59 L 95 PG Care Time/CCT Total # of Minutes Spent Total Time Spent with Patient: Total time spent is greater than 50% in coordination of care (as documented) at patient's floor/unit and/or counseling patient: Coding Level of Care Code 07040 Subseq Hosp Care Lvl 2 Diagnoses Foreign body, swallowed T18.9XXA Suicide attempt T14.91XA Multiple sclerosis G35 Hepatitis B B19.10 Intermittent explosive disorder F63.81
--- NOTE | 2021-09-28 09:55 | Discharge Summary ---
Date of Service September 28, 2021 Admission HPI Per Admitting Provider Philip Casanova is a 31 y/o male w/ PMHx of of hep B, MS, and intermittent explosive disorder who presents from [facility] after swallowing 13 e-cigarette batteries at 12:45PM today. Patient states he has been in despute w/ the medical department to treat his muscle spasms from MS. He states he was frustrated at his medical care. No current thoughts of hurting self. He had mild-mod abd 1 hour after, since lessened. Denies n/v. No hematemesis. No fever/chills, cp, sob. He swallowed the batteries one at a time. Heimlich maneuver was not attempted. He pressed button and told staff he swallowed the batteries who then called for EMS. He drank half a cup of wate in the interim. Patient states this is his 4th time of trying to take life, has swallowed and hung self in past. He took his AM meds including Neurontin, baclofen, prozac, tenofovir, Copaxone today. He has baseline RLE wkness 2/2 MS. He uses wheelchair for assistance at baseline x several years. 2 fpc guards are at bedside. Per guards, no confusion or behavioral changes. Patient apes nicotine occasionally. Former tobacco user, quit cigarettes 2 yrs ago. Distant hx of IVDU. ED course: KUB showing the opaque batteries. "Multiple linear metallic densities are seen projecting over the gastric contour. " wbc 9.76. Not anemic. Electrolytes wnl. Awaiting GI upper endoscopy. Principal Diagnosis Battery ingestion Multiple sclerosis Discharge Exam General: well developed, well nourished, no acute distress, comfortable Neck: supple, trachea midline, normal thyroid Lungs: clear to auscultation bilaterally, normal respiratory effort, no accessory muscle use, no distress Heart: regular S1 and S2, no murmur, peripheral pulses normal, capillary refill normal, no edema Abdomen: soft, NT, ND, + BS, no hepatomegaly, normal to percussion Extremities: normal in appearance, no cyanosis, no petechiae, strength is 5/5 bilaterally Neuro: awake, cooperative, moves all extremities, no focal motor deficits, CN II-XII intact, sensation in extremities intact, normal speech Skin: warm, dry, no rash, normal turgor Psych: Awake, alert oriented x 3, euthymic affect Discharge Data Allergies Allergy/AdvReac Type Severity Reaction Status Date / Time No Known Allergies Allergy Verified 09/26/21 18:48 Consultations 09/26/21 19:24 ED Decision to Admit Stat 09/26/21 21:59 Consult Gastroenterology Routine Consult Psychiatry Routine Procedures Performed Operation Date: 09/26/21 20:30 Actual Procedures p Esophagogastroduodenoscopy(Not Applicable) - Compa Calvin MD Hospital Course (1) Foreign body, swallowed: 31 y/o male from [facility] w/ PMHx of multiple sclerosis and prior suicide attempts who presents w/ ingestion of 13 large e-cigarette batteries. He is stable and asymptomatic other than mild abd pain. - GI consulted - EGD with successful removal of batteries KUB 09/28 shows no further batteries in GI tract tolerating diet safe for discharge (2) Suicide attempt: - denies current SI - appreciate psych consult, no suicidal ideation, swallowed batteries for medical attention safe to d/c back to [facility] (3) Multiple sclerosis: - continue home regimen, daily glatiramer injections - resume gabapentin and baclofen he is frustrated due to [facility] policy that there are no noon medications, gets bad in afternoons follow up with neurology in [facility] system, no need for inpatient neurology consult (4) Hepatitis B: - continue home regimen tenofovir when able. per patient, hep B in remission (5) Intermittent explosive disorder: - continue home regimen (qhs Zyprexa and daily fluoxetine) when able FEN/GI: advance diet code: full ppx: SCDs only dispo: med/surg Total Time Total Time Spent Total Time Spent (In Minutes): 32 Total Time Includes: Examination of the Patient, Discharge Planning and Medication Reconciliation Discharge Plan Discharge Items [facility] Reason For Visit: INGESTIOIN OF BATTERIES Discharge Diagnosis: Ingestion of batteries Multiple sclerosis Condition on Discharge: Good Goals: follow up with neurology in [facility] system suicidal precautions, avoid items he could ingest Activity: Resume your previous activity Weightbearing: Full weightbearing Non-emergency contact: Primary Care Provider Call non-emergency contact if: you have any medication questions Follow-up/Referrals: Sin GOLDBERG [Primary Care Provider] - Diet: Regular Addtl Attending Provider Instructions: Medications: no changes Battery ingestion, intentional, not suicide attempt, wanted to get medical attention EGD on 09/26 with removal of batteries KUB on 09/28 shows no batteries in GI tract tolerating diet continue suicide watch at [facility], avoid any items that he could ingest follow up with neurology with [facility] Pending Studies at Discharge: No Stand-Alone Forms: My [facility] Skilled Items Patient informed of condition?: Yes Discharge Level of Care: Other Communicable Disease: No Discharge Prognosis: Stable Lines: None Urinary Catheter: No Medications and DC Order Prescriptions: Continued baclofen 20 mg tablet 20 mg PO BID PRN (Reason: spasticity) RF: 0 gabapentin 600 mg Tablet 1,800 mg PO BID RF: 0 Vemlidy 25 mg Tablet 25 mg PO QAM RF: 0 fluoxetine 20 mg Capsule 20 mg PO DAILY RF: 0 glatiramer [Glatopa] 20 mg/mL Syringe 20 mg SUBCUT DAILY RF: 0 olanzapine [Zyprexa] 15 mg Tablet 15 mg PO HS RF: 0 Discharge Orders: Discharge Order (Routine); Ordered 09/28/21 Ordered By: Mark Dominguze/Other Patient Handouts: Preventing Deep Vein Thrombosis Admission Data Admit Date/Time: 09/26/21 20:15 Attending Provider: Mark Horton Admit Provider: Yuri Clay Primary Care Provider: Sin GOLDBERG Other Providers: Cameron Ahuja ; Compa Calvin ; vAril Malone ; Citlaly Momin ; Franci Tamez ; Philip Tello Other Interventions: Discharge Summary Assessment (RN) Last Done: 09/28/21 10:26 Coding Level of Care Code D/C DAY MANAGEMENT >30 MINS Diagnoses Foreign body, swallowed T18.9XXA Suicide attempt T14.91XA Multiple sclerosis G35 Hepatitis B B19.10 Intermittent explosive disorder F63.81
[2021-09-28 10:28] VITALS: BP 109/66; PULSE 89
== END 2021-09-28 13:15 | DRG 394 ==
LOC: ED 14:40 → SUATTDRO 20:15 → OR 20:30 → 2S 20:31 → 3E 09-27 18:08